=== PATIENT | female | born 1945 | race Two or more races ===

== ENCOUNTER 2020-08-20 17:54 | Inpatient (IN) | payer OTHER ==
[~2020-08-20] VITALS: Ht 154.9 cm; Wt 73.6 kg
[2020-08-20] MEDS ORDERED: MORPHINE SULFATE 4 MG/ML SYR/VIAL IV ONE (18:30)
[2020-08-20] MEDS ORDERED: SODIUM CHLORIDE 0.9% 500 ML IVB ONE (18:30)
[2020-08-20] MEDS ORDERED: ONDANSETRON HCL 4 MG/2 ML VIAL IV ONE (18:30)
[2020-08-20] MEDS ORDERED: levoFLOXacin 500MG 100 ML IV ONE (18:45)
[2020-08-20] MEDS ORDERED: metroNIDAZOLE 500MG/100ML 100 ML IV ONE (18:45)
[2020-08-20 19:07] LABS: Basophils # (auto) 0.1 10 ^3/uL (0-0.2); Eosinophils # (auto) 0.2 10 ^3/uL (0-0.8); Hematocrit 36.7 % (36.0-46.0); Hemoglobin 11.8 g/dL (12.2-16.2); Lymphocytes # (auto) 2.2 10 ^3/uL (0.4-5.4); Mean Corpuscular Hemoglobin 26.5 pg (28.0-32.0); Red Cell Distribution Width 16.9 % (11.8-14.3)
[2020-08-20 19:09] LABS: Eosinophils % (auto) 2.2 % (0.0-7.0); Lymphocytes % (auto) 27.4 % (10.0-50.0); Mean Corpuscular Hgb Conc. 32.1 g/dL (32.0-36.0); Mean Corpuscular Volume 82.6 fL (80.0-100.0); Monocytes # (auto) 0.6 10 ^3/uL (0-1.3); Monocytes % (auto) 8.1 % (0.0-12.0); Neutrophils # (auto) 4.8 10 ^3/uL (1.6-8.6); Neutrophils % (auto) 61.3 % (37.0-80.0); Platelet Count (auto) 340 10^3/uL (140-450); Red Blood Cells 4.45 10^6/uL (4.0-5.20); White Blood Cell 7.9 10^3/uL (4.4-10.8)
[2020-08-20 19:22] LABS: INR 0.99 (0.9-1.15)
[2020-08-20 19:38] LABS: Calcium 8.5 mg/dL (8.5-10.1); Chloride 107 mmol/L (98-107); Potassium 3.6 mmol/L (3.5-5.1); Sodium 140 mmol/L (136-145)
[2020-08-20 19:41] LABS: Alanine Aminotransferase 18 U/L (13-56); Albumin 3.6 g/dL (3.4-5.0); Anion Gap 10 (5-15); Aspartate Aminotransferase 12 U/L (15-37); BUN/Creatinine Ratio 16.2; Blood Urea Nitrogen 12 mg/dL (7-18); Carbon Dioxide 23 mmol/L (21-32); GFR African American 99 mL/min; GFR Non-African American 82 mL/min; Glucose 141 mg/dL (74-106)
[2020-08-20 19:46] LABS: Alkaline Phosphatase 107 U/L (45-117); Bilirubin, Total 0.5 mg/dL (0.2-1.0); Total Protein 7.2 g/dL (6.4-8.2)
[2020-08-20] MEDS ORDERED: MORPHINE SULF INJ 2 MG/ML SYRINGE 1ML IV PRN (20:15)
[2020-08-20] MEDS ORDERED: LABETALOL HCL 5 MG/ML 4ML SYRINGE IV PRN (20:15)
[2020-08-20] MEDS ORDERED: NITROGLYCERIN 0.4 MG SL TAB SL PRN (20:15)
[2020-08-20] MEDS: metroNIDAZOLE 500MG/100ML 100 ML IV SCH (21:37)
[2020-08-20] MEDS: D5W/SOD CHL 0.45%/KCL 20MEQ 1,000 ML IV SCH (22:22)
[2020-08-20 23:08] LABS: Urine Bacteria FEW /hpf (None Seen); Urine Blood Negative /uL (Negative); Urine WBC 63 /hpf (0 - 5)
[2020-08-20 23:12] LABS: Urine Specific Gravity > 1.050 (1.001-1.035)
[2020-08-21] MEDS: D5W/SOD CHL 0.45%/KCL 20MEQ 1,000 ML IV SCH ×3 (04:35→20:08)
[2020-08-21 05:00] VITALS: BP 134/56
[2020-08-21] MEDS: metroNIDAZOLE 500MG/100ML 100 ML IV SCH ×3 (05:01→21:27)
[2020-08-21 09:00] VITALS: BP 112/69
[2020-08-21] MEDS: PANTOPRAZOLE 40 MG/10 ML VIAL INJ IV SCH (09:42)
[2020-08-21] MEDS: levoFLOXacin 500MG 100 ML IV SCH (09:42)
[2020-08-21] MEDS: MORPHINE SULF INJ 2 MG/ML SYRINGE 1ML IV PRN ×2 (09:42→21:49)
[2020-08-21 13:00] VITALS: BP 140/64
[2020-08-21] MEDS ORDERED: ROCURONIUM 10MG/ML 10ML VIAL IV ONE (14:44)
[2020-08-21] MEDS ORDERED: fentaNYL CITRATE 100 MCG/2 ML VL ONE ×2 (14:44→15:59)
[2020-08-21] MEDS ORDERED: MIDAZOLAM HCL 1MG/1ML-2 ML VIAL ONE (14:44)
[2020-08-21] MEDS ORDERED: PROPOFOL 10 MG/ML 20 ML IV ONE (14:47)
[2020-08-21] MEDS ORDERED: LIDOCAINE 2% (LOCAL ANESTH.) PF 5ml SDV ONE (14:47)
[2020-08-21] MEDS ORDERED: LIDOCAINE W/ EPINEPHRINE 1% 20ML VIAL ONE (15:15)
[2020-08-21] MEDS ORDERED: BUPIVACAINE 0.5% MPF INJ 30ML SDV IJ ONE (15:16)
[2020-08-21] MEDS ORDERED: SUCCINYLCHOLINE CHLORIDE 20 MG/ML 10ML VIAL IV ONE (15:16)
[2020-08-21] MEDS ORDERED: ONDANSETRON HCL 4 MG/2 ML VIAL IV PRN (17:00)
[2020-08-21] MEDS ORDERED: HYDROmorphone HCL 2 MG/ML VL IV PRN ×2 (17:00)
[2020-08-21 17:20] VITALS: BP 133/66
[2020-08-21 22:12] VITALS: BP 118/46
[2020-08-22] MEDS: MORPHINE SULF INJ 2 MG/ML SYRINGE 1ML IV PRN (04:03)
[2020-08-22] MEDS: metroNIDAZOLE 500MG/100ML 100 ML IV SCH ×2 (05:01→15:36)
[2020-08-22] MEDS: D5W/SOD CHL 0.45%/KCL 20MEQ 1,000 ML IV SCH ×2 (05:06→12:22)
[2020-08-22 05:40] VITALS: BP 109/67
[2020-08-22 06:02] LABS: Basophils # (auto) 0 10 ^3/uL (0-0.2); Basophils % (auto) 0.3 % (0.0-2.0); Eosinophils # (auto) 0.2 10 ^3/uL (0-0.8); Eosinophils % (auto) 2.3 % (0.0-7.0); Hemoglobin 10.8 g/dL (12.2-16.2); Lymphocytes # (auto) 0.9 10 ^3/uL (0.4-5.4); Lymphocytes % (auto) 12.9 % (10.0-50.0); Mean Corpuscular Hgb Conc. 32.6 g/dL (32.0-36.0); Mean Corpuscular Volume 82.8 fL (80.0-100.0); Monocytes # (auto) 0.5 10 ^3/uL (0-1.3); Neutrophils # (auto) 5.6 10 ^3/uL (1.6-8.6); Neutrophils % (auto) 77.5 % (37.0-80.0); Platelet Count (auto) 280 10^3/uL (140-450); Red Blood Cells 3.98 10^6/uL (4.0-5.20); Red Cell Distribution Width 16.8 % (11.8-14.3); White Blood Cell 7.3 10^3/uL (4.4-10.8)
[2020-08-22 06:23] LABS: Calcium 8.2 mg/dL (8.5-10.1); Potassium 3.6 mmol/L (3.5-5.1)
[2020-08-22 06:26] LABS: BUN/Creatinine Ratio 10.5
[2020-08-22 09:00] VITALS: BP 110/51
[2020-08-22] MEDS: PANTOPRAZOLE 40 MG/10 ML VIAL INJ IV SCH (12:22)
[2020-08-22] MEDS: levoFLOXacin 500MG 100 ML IV SCH (12:22)
[2020-08-22 13:00] VITALS: BP 110/56
[2020-08-22 16:31] VITALS: BP 126/59
[2020-08-22 16:39] VITALS: BP 126/59
[2020-08-22] MEDS ORDERED: NEOSTIGMINE 1 MG/ML INJ (10mg/10ML VIAL) IV ONE (17:59)
[2020-08-22] MEDS ORDERED: GLYCOPYRROLATE 0.2 MG/ML 1ML VIAL IV ONE (17:59)
== END 2020-08-22 18:00 | disposition home or self-care (01) | DRG 343 ==
LOC: ER 17:54 → TELE 20:16 → TELE-WESTW 22:53
PROVIDERS: ADMIT Nurse Practitioner Acute Care; ATTEND Internal Medicine
PROC: 0DTJ4ZZ Resection of Appendix, Percutaneous Endoscopic Approach (ICD-10-PCS; principal; 2020-08-21 15:20)
DX: K35.30 Acute appendicitis with localized peritonitis, without perforation or gangrene (principal); Z20.822 Contact with and (suspected) exposure to COVID-19; R73.03 Prediabetes; Z68.30 Body mass index [BMI] 30.0-30.9, adult; I10 Essential (primary) hypertension; D64.9 Anemia, unspecified; E78.5 Hyperlipidemia, unspecified; E66.01 Morbid (severe) obesity due to excess calories; Z82.0 Family history of epilepsy and other diseases of the nervous system; Z90.710 Acquired absence of both cervix and uterus; Z86.711 Personal history of pulmonary embolism; Z88.0 Allergy status to penicillin; Z91.018 Allergy to other foods; K66.0 Peritoneal adhesions (postprocedural) (postinfection)
CPT/HCPCS: 36415; 71045; 74176; 80048; 80053; 81001; 83605; 84484; 85025; 85610; 85730; 86850; 86900; 86901; 87040; 87081; 87426; 93005; 96361; 96365; 96367; 96375; C9113; G0378; J0330; J1956; J2001; J2250; J2405; J2704; J3490

== ENCOUNTER 2021-01-11 21:22 | Emergency (ER) | payer OTHER ==
[~2021-01-11] VITALS: Ht 162.6 cm; Wt 70.8 kg
[2021-01-11 22:46] LABS: Basophils # (auto) 0 10 ^3/uL (0-0.2); Basophils % (auto) 0.4 % (0.0-2.0); Eosinophils # (auto) 0.3 10 ^3/uL (0-0.8); Eosinophils % (auto) 2.9 % (0.0-7.0); Hematocrit 36.8 % (36.0-46.0); Hemoglobin 11.9 g/dL (12.2-16.2); Lymphocytes # (auto) 3.1 10 ^3/uL (0.4-5.4); Lymphocytes % (auto) 32.5 % (10.0-50.0); Mean Corpuscular Hgb Conc. 32.2 g/dL (32.0-36.0); Mean Corpuscular Volume 83.8 fL (80.0-100.0); Monocytes # (auto) 0.6 10 ^3/uL (0-1.3); Monocytes % (auto) 6.1 % (0.0-12.0); Neutrophils # (auto) 5.6 10 ^3/uL (1.6-8.6); Neutrophils % (auto) 58.1 % (37.0-80.0); Red Blood Cells 4.39 10^6/uL (4.0-5.20); Red Cell Distribution Width 16.2 % (11.8-14.3); White Blood Cell 9.6 10^3/uL (4.4-10.8)
[2021-01-11 23:07] LABS: Albumin 3.5 g/dL (3.4-5.0); Anion Gap 9 (5-15); Blood Urea Nitrogen 17 mg/dL (7-18); Carbon Dioxide 26 mmol/L (21-32); Chloride 109 mmol/L (98-107); Glucose 113 mg/dL (74-106); Potassium 3.8 mmol/L (3.5-5.1); Sodium 144 mmol/L (136-145)
[2021-01-11 23:14] LABS: Alanine Aminotransferase 20 U/L (13-56); Alkaline Phosphatase 108 U/L (45-117); Amylase 102 U/L (25-115); Aspartate Aminotransferase 15 U/L (15-37); Bilirubin, Total 0.2 mg/dL (0.2-1.0); GFR African American 61 mL/min; GFR Non-African American 50 mL/min; Lipase 230 U/L (73-393); Total Protein 7.3 g/dL (6.4-8.2)
[2021-01-12] MEDS ORDERED: SODIUM CHLORIDE 0.9% 2,000 ML IV ONE
[2021-01-12] MEDS ORDERED: ONDANSETRON HCL 4 MG/2 ML VIAL IV ONE
[2021-01-12] MEDS ORDERED: levoFLOXacin 500MG 100 ML IV ONE
[2021-01-12] MEDS ORDERED: HYDROmorphone HCL 2 MG/ML VL IV ONE
[2021-01-12] MEDS ORDERED: metroNIDAZOLE 500MG/100ML 100 ML IV ONE
[2021-01-12 03:56] LABS: Urine Blood Negative /uL (Negative); Urine Specific Gravity 1.023 (1.001-1.035); Urine WBC 191 /hpf (0 - 5)
[2021-01-12 03:57] LABS: Urine Bacteria MANY /hpf (None Seen); Urine Mucus FEW (None Seen)
[2021-01-12] MEDS ORDERED: cefTRIAXone 1GM/50ML D5W 50 ML IV ONE (08:45)
[2021-01-12 15:00] VITALS: BP 142/56
== END 2021-01-12 19:15 | disposition home or self-care (01) ==
LOC: ER 21:27
DX: K57.30 Diverticulosis of large intestine without perforation or abscess without bleeding (principal); K44.9 Diaphragmatic hernia without obstruction or gangrene; K56.7 Ileus, unspecified; I10 Essential (primary) hypertension; Z90.49 Acquired absence of other specified parts of digestive tract; Z90.710 Acquired absence of both cervix and uterus; Z88.0 Allergy status to penicillin; Z91.018 Allergy to other foods; Z20.822 Contact with and (suspected) exposure to COVID-19
CPT/HCPCS: 36415; 71045; 74018; 74176; 80053; 81001; 82150; 83690; 84484; 85025; 87426; 96365; 96367; 96375; 99285; J0696; J1170; J1956; J2405; J3490; J7030; 93005

== ENCOUNTER 2023-10-19 13:44 | Emergency (ER) | payer MEDICARE, MEDICAID ==
[~2023-10-19] VITALS: Ht 152.4 cm; Wt 72.3 kg
[2023-10-19 16:09] LABS: Basophils # (auto) 0.1 10 ^3/uL (0-0.2); Eosinophils # (auto) 0.2 10 ^3/uL (0-0.8); Eosinophils % (auto) 3.8 % (0.0-7.0); Hematocrit 30.9 % (36.0-46.0); Hemoglobin 9.6 g/dL (12.2-16.2); Lymphocytes % (auto) 34.9 % (10.0-50.0); Mean Corpuscular Hemoglobin 25.5 pg (28.0-32.0); Mean Corpuscular Hgb Conc. 31.1 g/dL (32.0-36.0); Mean Corpuscular Volume 82.2 fL (80.0-100.0); Monocytes # (auto) 0.6 10 ^3/uL (0-1.3); Neutrophils # (auto) 2.9 10 ^3/uL (1.6-8.6); Neutrophils % (auto) 50.3 % (37.0-80.0); Red Blood Cells 3.76 10^6/uL (4.0-5.20); White Blood Cell 5.7 10^3/uL (4.4-10.8)
[2023-10-19 16:36] LABS: Alanine Aminotransferase 12 U/L (7-40); Albumin 4.3 g/dL (3.2-4.8); Alkaline Phosphatase 89 U/L (46-116); Anion Gap 6 (5-15); Aspartate Aminotransferase 10 U/L (13-40); BUN/Creatinine Ratio 13.9 (10.0-20.0); Blood Urea Nitrogen 11 mg/dL (9-23); Calcium 9.6 mg/dL (8.5-10.1); Carbon Dioxide 27 mmol/L (20-30); Chloride 110 mmol/L (98-107); Glucose 103 mg/dL (74-106); Potassium 3.8 mmol/L (3.5-5.1); Sodium 143 mmol/L (136-145)
[2023-10-19 16:37] LABS: Bilirubin, Total 0.3 mg/dL (0.2-1.0); Total Protein 6.5 g/dL (5.7-8.2)
[2023-10-19] MEDS ORDERED: FURO1TAB31 PO (20:33)
[2023-10-19] MEDS ORDERED: BACL20TA PO (20:33)
[2023-10-19 20:52] VITALS: BP 146/56; PULSE 55; RESP 18; TEMP 98.2; O2SAT 96
== END 2023-10-19 20:55 | disposition home or self-care (01) ==
LOC: ER 13:44
DX: I11.0 Hypertensive heart disease with heart failure (principal); I50.9 Heart failure, unspecified; R60.0 Localized edema; M19.90 Unspecified osteoarthritis, unspecified site; E11.9 Type 2 diabetes mellitus without complications; Z86.2 Personal history of diseases of the blood and blood-forming organs and certain disorders involving the immune mechanism; Z88.0 Allergy status to penicillin; Z90.49 Acquired absence of other specified parts of digestive tract; Z90.710 Acquired absence of both cervix and uterus; Z91.018 Allergy to other foods
CPT/HCPCS: 36415; 71045; 80053; 83880; 85025; 85379

== ENCOUNTER 2024-10-14 11:16 | Inpatient (IN) | payer MEDICARE, MEDICAID ==
[~2024-10-14] VITALS: Ht 152.4 cm; Wt 70.1 kg
[~2024-10-14 11:16] MED LIST: BACL20TA PO; FURO1TAB31 PO
--- NOTE | 2024-10-14 11:55 | ED.PDOC ---
GI ASSESSMENT HPI Comments 79 y/o F, with PMHx of urinary incontinence, anemia, abdominal ulcers, PE, DM, and HTN presents to the ED for CC of diarrhea. Patient states, she has been experiencing lose black tarry stools with associated symptoms of nausea, vomiting, and diffuse abdominal pain x3days. Patient reports, she was recently treated for a UTI and has since, finished her course of antibiotics. Patient denies change in diet, hematemesis, fever, chills, or body aches. No other symptoms or modifying factors present at this time. Chief Complaint: Diarrhea Time Seen by MD: 11:35 Primary Care Provider: RAMÓN Reviewed Notes: Nurses Notes, Medications, Allergies Allergies: Coded Allergies: Penicillins (Verified Allergy, Unknown, 01/11/21) Uncoded Allergies: kiwi (Allergy, Mild, 08/21/20) Home Meds Active Scripts Baclofen (Baclofen) 20 Mg Tab, 1 TAB PO TID PRN, #30 TAB 2 Refills Prov:PEDRO LUIS SANFORD 10/19/23 Furosemide (Lasix) 40 Mg Tab, 40 MG PO DAILY for 20 Days, #20 TAB Prov:PEDRO LUIS SANFORD 10/19/23 Reported Medications Ferrous Sulfate (Ferosul) 325 Mg Tab, 1 TAB PO DAILY 10/14/24 Atorvastatin Calcium (ATORVASTATIN CALCIUM) 40 Mg Tab, 1 TAB PO DAILY 10/14/24 Gabapentin (Gabapentin) 300 Mg Cap, 1 CAP PO TID 10/14/24 Losartan Potassium (Losartan Potassium) 50 Mg Tab, 1 TAB PO DAILY 10/14/24 Sucralfate (Sucralfate) 1 Gm Tab, 1 TAB PO BID 10/14/24 Pantoprazole Sodium Sesquihydr (Pantoprazole Sodium) 40 Mg Tab, 1 TAB PO DAILY 10/14/24 Information Source: Patient Mode of Arrival: Ambulatory Timing: Days Duration: Since onset Prehospital treatment: None Quality: None Stool: Watery, Black Severity: Moderate Recent: None Recent Hx of: None Pain Location: Diffuse Modifying Factors: Nothing Associated sign and symptoms: Nausea, Vomiting, Diarrhea, Abdominal Pain Past Medical History PAST MEDICAL HISTORY: Anemia, Arthritis, DM, HTN Surgical History: Appendectomy, Hysterectomy ELECTROTYPE CASTER History: No Pertinent ELECTROTYPE CASTER History Family History Family History: Reviewed,noncontributory to illness Social History Smoker: Non-Smoker Alcohol: Denies ETOH Use Drugs: Denies Drug Use Lives In: Home Gastrointestinal: reports: abdominal pain, melena, nausea, vomiting All Other Systems: Reviewed and Negative Physical Exam General Appearance: No Apparent Distress, Normal HEENT: Normal ENT Inspection, Pharynx Normal Neck: Full Range of Motion, Non-Tender, Normal, Normal Inspection Respiratory: Chest Non-Tender, Lungs Clear, No Accessory Muscle Use, No Respiratory Distress, Normal Breath Sounds Cardiovascular: No Edema, No Murmur, No Gallop, Normal Peripheral Pulses, Regular Rate/Rhythm Breast Exam: Deferred Gastrointestinal: No Organomegaly, Non Tender, No Pulsatile Mass, Normal Bowel Sounds, Soft Genitalia: Deferred Pelvic: Deferred Rectal: Black stool Extremities: No calf tenderness, Normal capillary refill, Normal inspection, Normal range of motion, Non-tender, No pedal edema Musculoskeletal : Apperance: Normal Neurologic: Alert, franchise sales representative II-XII nml as Tested, No Motor Deficits, Normal Affect, Normal Mood, No Sensory Deficits Cerebellar Function: Normal Reflexes: Normal Skin: Dry, Normal Color, Warm Lymphatic: No Adenopathy Was a procedure done? Was a procedure done?: No GI differential Dx Differential Diagnosis: GI hemorrhage X-Ray, Labs, Meds, VS Vital Signs Date Time Temp Pulse Resp B/P (MAP) Pulse Ox O2 Delivery O2 Flow Rate FiO2 10/14/24 12:30 98.4 89 17 126/53 (77) 98 98.4 10/14/24 12:30 89 17 98 Room Air 10/14/24 11:32 97.0 72 16 125/49 (74) 96 97.0 Lab Test 10/14/24 11:45 Range/Units White Blood Count 5.5 4.4-10.8 10^3/uL Red Blood Count 3.13 L 4.0-5.20 10^6/uL Hemoglobin 7.5 L 12.2-16.2 g/dL Hematocrit 24.4 L 36.0-46.0 % Mean Corpuscular Volume 77.9 L 80.0-100.0 fL Mean Corpuscular Hemoglobin 24.1 L 28.0-32.0 pg Mean Corpuscular Hemoglobin Concent 30.9 L 32.0-36.0 g/dL Red Cell Distribution Width 17.6 H 11.8-14.3 % Platelet Count 298 140-450 10^3/uL Mean Platelet Volume 7.5 6.9-10.8 fL Neutrophils (%) (Auto) 55.2 37.0-80.0 % Lymphocytes (%) (Auto) 29.2 10.0-50.0 % Monocytes (%) (Auto) 8.1 0.0-12.0 % Eosinophils (%) (Auto) 6.6 0.0-7.0 % Basophils (%) (Auto) 0.9 0.0-2.0 % Neutrophils # (Auto) 3.0 1.6-8.6 10 ^3/uL Lymphocytes # (Auto) 1.6 0.4-5.4 10 ^3/uL Monocytes # (Auto) 0.4 0-1.3 10 ^3/uL Eosinophils # (Auto) 0.4 0-0.8 10 ^3/uL Basophils # (Auto) 0 0-0.2 10 ^3/uL Nucleated Red Blood Cells 0.1 % Sodium Level 142 136-145 mmol/L Potassium Level 3.4 L 3.5-5.1 mmol/L Chloride Level 112 H 98-107 mmol/L Carbon Dioxide Level 23 20-31 mmol/L Anion Gap 7 5-15 Blood Urea Nitrogen 11 9-23 mg/dL Creatinine 0.88 0.550-1.02 mg/dL Glomerular Filtration Rate Calc 67 >90 mL/min BUN/Creatinine Ratio 12.5 10.0-20.0 Serum Glucose 91 74-106 mg/dL Hemoglobin A1c 5.9 H <5.7 % A1C Calcium Level 8.9 8.7-10.4 mg/dL Total Bilirubin 0.4 0.2-1.0 mg/dL Aspartate Amino Transferase (AST) 10 L 13-40 U/L Alanine Aminotransferase (ALT) 11 7-40 U/L Alkaline Phosphatase 96 46-116 U/L Total Protein 6.1 5.7-8.2 g/dL Albumin 4.1 3.2-4.8 g/dL Current Medications Medications (Trade) Dose Ordered Sig/Ulysses Route Start Time Stop Time Status Last Admin Furosemide (Lasix Injection) 20 mg ONCE ONCE IV 10/14/24 11:30 10/14/24 11:31 DC 10/14/24 14:09 71-year-old male presents here with black tarry stools for the last couple of days. She does have a history of known gastric ulcer as medication list include sucralfate. Suspect likely GI bleed. At this time blood work has been done which does demonstrate anemia of 7.5. Patient also has evidence of some mild leg edema. I have given the Lasix 20 IV in the ER. Potassium also slightly low at 3.4 given 1 pill of KCl. At this time hospitalist team has been contacted for admission. Time of 1ST Reevaluation: 12:05 Reevaluation 1ST: Unchanged Patient Education/Counseling: Diagnosis, Treatment Family Education/Counseling: No Family Present Departure 1 Departure Time of Disposition: 12:45 Impression: Primary Impression: Anemia Qualified Codes: D50.9 - Iron deficiency anemia, unspecified Additional Impression: Gastric bleed Disposition: ADMITTED INPATIENT Condition: Serious Critical Care Note Critical Care Time?: Yes Stability Stability form required: No Heart Score Heart Score: Heart Score Response (Comments) Value History N/A 0 EKG N/A 0 Age N/A 0 Risk Factors N/A 0 Troponin N/A 0 Total 0 I personally scribed for SAMANTHA FRIEDMAN MD ([email or web address]) on 10/14/24 at 11:55. Electronically submitted by Jil Ochoa ([email or web address]). SAMANTHA FRIEDMAN MD Oct 14, 2024 11:55
[2024-10-14 12:03] LABS: Basophils # (auto) 0 10 ^3/uL (0-0.2); Basophils % (auto) 0.9 % (0.0-2.0); Eosinophils # (auto) 0.4 10 ^3/uL (0-0.8); Eosinophils % (auto) 6.6 % (0.0-7.0); Hematocrit 24.4 % (36.0-46.0); Hemoglobin 7.5 g/dL (12.2-16.2); Lymphocytes # (auto) 1.6 10 ^3/uL (0.4-5.4); Lymphocytes % (auto) 29.2 % (10.0-50.0); Mean Corpuscular Hemoglobin 24.1 pg (28.0-32.0); Mean Corpuscular Hgb Conc. 30.9 g/dL (32.0-36.0); Mean Corpuscular Volume 77.9 fL (80.0-100.0); Monocytes # (auto) 0.4 10 ^3/uL (0-1.3); Monocytes % (auto) 8.1 % (0.0-12.0); Neutrophils % (auto) 55.2 % (37.0-80.0); Nucleated Red Blood Cells % 0.1 %; Platelet Count (auto) 298 10^3/uL (140-450); Red Blood Cells 3.13 10^6/uL (4.0-5.20); Red Cell Distribution Width 17.6 % (11.8-14.3); White Blood Cell 5.5 10^3/uL (4.4-10.8)
[2024-10-14 12:17] LABS: Alanine Aminotransferase 11 U/L (7-40); Albumin 4.1 g/dL (3.2-4.8); Alkaline Phosphatase 96 U/L (46-116); Anion Gap 7 (5-15); Aspartate Aminotransferase 10 U/L (13-40); BUN/Creatinine Ratio 12.5 (10.0-20.0); Bilirubin, Total 0.4 mg/dL (0.2-1.0); Blood Urea Nitrogen 11 mg/dL (9-23); Calcium 8.9 mg/dL (8.7-10.4); Carbon Dioxide 23 mmol/L (20-31); Chloride 112 mmol/L (98-107); Glucose 91 mg/dL (74-106); Potassium 3.4 mmol/L (3.5-5.1); Sodium 142 mmol/L (136-145); Total Protein 6.1 g/dL (5.7-8.2)
[2024-10-14] MEDS ORDERED: NITROGLYCERIN 0.4 MG SL TAB SL PRN (13:15)
[2024-10-14] MEDS ORDERED: ONDANSETRON HCL 4 MG/2 ML VIAL IV PRN (13:15)
[2024-10-14] MEDS ORDERED: DEXTROSE (50%) 50ML SYRG IV PRN (13:15)
[2024-10-14] MEDS: FUROSEMIDE 20 MG/2 ML VIAL IV ONE (14:09)
[2024-10-14] MEDS ORDERED: ATOR40TA52 PO (14:13)
[2024-10-14] MEDS ORDERED: SUCR1TAB PO (14:13)
[2024-10-14] MEDS ORDERED: GABA-1250 PO (14:13)
[2024-10-14] MEDS ORDERED: FERR325T20 PO (14:13)
[2024-10-14] MEDS ORDERED: PANT40T PO (14:13)
[2024-10-14] MEDS ORDERED: LOSA-534 PO (14:13)
[2024-10-14] MEDS: POTASSIUM CHL 20 Meq TABLET PO ONE (14:24)
--- NOTE | 2024-10-14 14:29 | DVHHP2 ---
History of Present Illness Reason for Visit: Diarrhea History of Present Illness Shelia Duggan is a 71-year-old female with past medical history of hypertension, diabetes, PE, urinary incontinence, anemia, arthritis, ulcers, appendectomy, and hysterectomy who presents to the ED with diarrhea x3 days. Patient states that the stool has been loose tarry and dark. Patient also stated that in April she fell and hit the right side of her head in the [place]. She states that she did not lose consciousness. She does report that she uses a front wheel walker but when she goes out she holds onto her granddaughter's arm. She denies any chest pain, shortness of breath, fever, chills, lightheadedness, weakness, dizziness, recent trauma or injury, recent ingestion of spoiled food, recent sick contacts, abdominal pain, nausea, or vomiting. Patient reports that she had a UTI recently in finished the course of antibiotics. Patient also states that she takes Eliquis for her PE for the last 5 months. Cardiovascular: HTN Pulmonary: Pulmonary embolus Heme/Onc: Anemia NOS Endocrine: Diabetes Past Medical History Urinary incontinence Ulcers Arthritis Past Surgical History: Appendectomy, Hysterectomy Family History: DM, Other (Mom with diabetes and dad with heart disease) Smoke: No ALCOHOL: none Drugs: None Lives: with Family Domestic Violence: Neg Review of Systems Gastrointestinal: Diarrhea Allergies: Coded Allergies: Penicillins (Verified Allergy, Unknown, 01/11/21) Uncoded Allergies: kiwi (Allergy, Mild, 08/21/20) Medications Current Medications Medications Dose Ordered Sig/Ulysses Route Start Time Stop Time Status Last Admin Dose Admin Diagnostic Test (Pha) 1 strip ACHS 10/14/24 17:00 UNV Insulin Human Regular ACHS SC 10/14/24 17:00 UNV Dextrose 50 ml UD PRN IV 10/14/24 13:15 UNV Acetaminophen/ Hydrocodone Bitart 1 tab Q4HP PRN PO 10/14/24 13:15 UNV Ondansetron HCl 4 mg Q4HP PRN IV 10/14/24 13:15 UNV Acetaminophen 650 mg Q6HP PRN PO 10/14/24 13:15 UNV Morphine Sulfate 2 mg Q4HPRN PRN IV 10/14/24 13:15 UNV Nitroglycerin 0.4 mg Q5MINP PRN SL 10/14/24 13:15 UNV Morphine Sulfate 2 mg Q30M PRN IV 10/14/24 13:15 UNV Gabapentin 300 mg TID PO 10/14/24 22:00 UNV Losartan Potassium 50 mg DAILY PO 10/15/24 10:00 UNV Sucralfate 1 gm BID PO 10/14/24 22:00 UNV Patient Own Medication 1 tab DAILY PO 10/15/24 10:00 UNV Patient Own Medication 1 tab DAILY PO 10/15/24 10:00 UNV Exam Vital Signs Vital Signs Date Time Temp Pulse Resp B/P (MAP) Pulse Ox O2 Delivery O2 Flow Rate FiO2 10/14/24 14:09 119/85 10/14/24 13:59 98.4 64 17 96 98.4 10/14/24 12:30 Room Air General Appearance: Alert, Oriented X3, Cooperative, No acute distress HEENT: Atraumatic, PERRLA, EOMI, Mucous membr. moist/pink Respiratory: Clear to auscultation, Normal air movement Cardiovascular: Regular rate, Normal S1, Normal S2 Abdominal: Soft Extremities: No edema, Normal pulses Skin: No significant lesion Neuro: Normal gait, Normal speech, Strength at 5/5 X4 ext, Normal tone, Sensation intact Psych/Mental Status: Mental status NL, Mood NL Labs/Xrays Labs Test 10/14/24 11:45 Range/Units White Blood Count 5.5 4.4-10.8 10^3/uL Red Blood Count 3.13 L 4.0-5.20 10^6/uL Hemoglobin 7.5 L 12.2-16.2 g/dL Hematocrit 24.4 L 36.0-46.0 % Mean Corpuscular Volume 77.9 L 80.0-100.0 fL Mean Corpuscular Hemoglobin 24.1 L 28.0-32.0 pg Mean Corpuscular Hemoglobin Concent 30.9 L 32.0-36.0 g/dL Red Cell Distribution Width 17.6 H 11.8-14.3 % Platelet Count 298 140-450 10^3/uL Mean Platelet Volume 7.5 6.9-10.8 fL Neutrophils (%) (Auto) 55.2 37.0-80.0 % Lymphocytes (%) (Auto) 29.2 10.0-50.0 % Monocytes (%) (Auto) 8.1 0.0-12.0 % Eosinophils (%) (Auto) 6.6 0.0-7.0 % Basophils (%) (Auto) 0.9 0.0-2.0 % Neutrophils # (Auto) 3.0 1.6-8.6 10 ^3/uL Lymphocytes # (Auto) 1.6 0.4-5.4 10 ^3/uL Monocytes # (Auto) 0.4 0-1.3 10 ^3/uL Eosinophils # (Auto) 0.4 0-0.8 10 ^3/uL Basophils # (Auto) 0 0-0.2 10 ^3/uL Nucleated Red Blood Cells 0.1 % Sodium Level 142 136-145 mmol/L Potassium Level 3.4 L 3.5-5.1 mmol/L Chloride Level 112 H 98-107 mmol/L Carbon Dioxide Level 23 20-31 mmol/L Anion Gap 7 5-15 Blood Urea Nitrogen 11 9-23 mg/dL Creatinine 0.88 0.550-1.02 mg/dL Glomerular Filtration Rate Calc 67 >90 mL/min BUN/Creatinine Ratio 12.5 10.0-20.0 Serum Glucose 91 74-106 mg/dL Calcium Level 8.9 8.7-10.4 mg/dL Total Bilirubin 0.4 0.2-1.0 mg/dL Aspartate Amino Transferase (AST) 10 L 13-40 U/L Alanine Aminotransferase (ALT) 11 7-40 U/L Alkaline Phosphatase 96 46-116 U/L Total Protein 6.1 5.7-8.2 g/dL Albumin 4.1 3.2-4.8 g/dL Assessment/Plan Assessment/Plan Assessment Intractable diarrhea with dark loose stools rule out GI bleed Anemia Hypokalemia Obesity History of hypertension History of diabetes type 2 History of PE History of urinary incontinence History of anemia History of arthritis History of ulcers Plan Admit to tele Antiemetics Pain management Replete lytes Type and screen Transfuse PRBCs if hemoglobin less than 7.0 Stool OB UA Hemoglobin A1c ISS and Accu-Cheks CT abdomen pelvis Diet Home medications reconciled DVT prophylaxis-not indicated patient ambulating PUD prophylaxis-PPIs Discussed plan of care with patient and nurse GI consult Hold Eliquis as patient has been bleeding, rule out possible GI bleed Counseled patient on lifestyle modifications, diet, and exercise Plan discussed with: Patient My Orders Orders - THON,SALINA K TRAIN PLANNER Procedure Category Date Status Time * Gi Dvh Forming Roll Operator Heavy Duty CONS 10/14/24 Transmitted 13:02 Hemoglobin A1c LAB 10/14/24 Logged 13:02 Glucose Blood PHA 10/14/24 Logged (Accu-Chek Comfort 17:00 Insulin R (Human) PHA 10/14/24 Logged (Insulin R) 17:00 Dextrose 50% Syringe PHA 10/14/24 Logged 13:15 Admit ADMIT 10/14/24 Transmitted 13:02 Code Status CODE 10/14/24 Transmitted 13:02 Hydrocodone-Acet PHA 10/14/24 Logged 5/325mg Tab ([place] 13:15 Ondansetron Hcl PHA 10/14/24 Logged (Zofran) 13:15 Complete Blood Count LAB 10/15/24 Verified 04:00 Comprehensive LAB 10/15/24 Verified Metabolic Panel 04:00 Cardiac DIET 10/14/24 Transmitted Diet-2gna,Lofat,Lochol Lunch Acetaminophen Tablet PHA 10/14/24 Logged (Tylenol Tablet) 13:15 Morphine Sulfate PHA 10/14/24 Logged Injection 13:15 Sequential AVTAR 10/14/24 In Process Compression Device Nitroglycerin PHA 10/14/24 Logged Sublingual (Ntrostat 13:15 Morphine Sulfate PHA 10/14/24 Logged Injection 13:15 Stat Ekg For Chest AVTAR 10/14/24 In Process Pain 13:02 Notify Of Changes AVTAR 10/14/24 In Process From Base 13:02 Academic Services Coordinator For AVTAR 10/14/24 In Process 24 Hours 13:02 Emergency Dysrhythmia AVTAR 10/14/24 In Process Protocol 13:02 Rhythm Strips Once AVTAR 10/14/24 In Process Every Shift 13:02 Oxygen By Nasal RT 10/14/24 Transmitted Cannula 13:02 Ct Ab Pel Wo Con-No CT 10/14/24 Logged Oral Or Iv 13:02 Gabapentin Capsule PHA 10/14/24 Transmitted (Neurontin Capsule) 22:00 Losartan Tablet PHA 10/15/24 Transmitted (Cozaar Tablet) 10:00 Sucralfate Tab PHA 10/14/24 Transmitted (Carafate Tab) 22:00 (Nf) Atorvastatin PHA 10/15/24 Transmitted Calcium 10:00 (Nf) Ferrous Sulfate PHA 10/15/24 Transmitted (Ferosul) 10:00 Date of Service: Oct 14, 2024 Billing Provider: [place] Common Visit Codes: [id number] INP/OBS CARE (HIGH) BLANCA BAY Oct 14, 2024 14:29
[2024-10-14] MEDS ORDERED: MORPHINE SULFATE 4 MG/ML SYR/VIAL IV PRN ×2 (14:30)
[2024-10-14 14:53] VITALS: BP 115/47; PULSE 59; RESP 18; TEMP 97.8; O2SAT 98
[2024-10-14 14:57] VITALS: PULSE 56; RESP 20; O2SAT 98
--- NOTE | 2024-10-14 15:03 | DVH ---
CT CT AB PEL WO CON-NO ORAL OR IV INDICATION: r/o gib EXAM DATE: 10/14/2024 02:29 PM COMPARISON: CT ABD PELVIS WO CONTRAST on DOS: 01/11/21, CT ABD PELVIS WO CONTRAST on DOS: 08/20/20 RADIATION DOSE: CTDIvol: 11 mGy, DLP: 564 mGy*cm PROCEDURE: Helical CT images were obtained of the abdomen and pelvis without IV contrast Sagittal and coronal reconstructions are provided. ORAL CONTRAST: None. ADDITIONAL IMAGES / REFORMATS: None All C T scans at this medical facility are performed using dose modulation techniques as appropriate to a p erformed exam including the following: Automated exposure control was utilized; adjustment of the MA and/or KV according to patient size; and use of iterative reconstruction technique. FINDINGS: LUNG BASE: Bibasilar atelectasis. LIVER: Normal. GALLBLADDER AND BILIARY TREE: No calcified gallstones. Normal caliber wall. No intra- or extrahepatic biliary ductal dilation. PANCREAS: Normal. SPLEEN: Normal. BOWEL: Stomach containing hiatal hernia. Moderate colonic diverticulosis. ADRENALS: Normal. KIDNEYS AND URETER: Normal. BLADDER: Normal. REPRODUCTIVE ORGANS: Normal. LYMPH NODES:No lymphadenopathy. PERITONEUM: No ascites or free air. No other fluid collection. VESSELS: Scattered atherosclerotic calcifications are noted. RETROPERITONEUM: Normal. ABDOMINAL WALL: Small umbilical hernia. BONES: Scattered osseous degenerative changes are noted. IMPRESSION: No acute intraabdominal abnormality. Stomach containing hiatal hernia contains dense material likely food debris. Moderate colonic diverticulosis.
[2024-10-14] MEDS: GABAPENTIN 300 MG CAP PO SCH (15:54)
[2024-10-14 16:21] LABS: Urine Bacteria FEW /hpf (None Seen); Urine Blood Negative /uL (Negative); Urine Clarity Clear (Clear); Urine Color Colorless (Yellow); Urine Protein, UAD Negative (Negative); Urine Specific Gravity 1.005 (1.001-1.035); Urine Squamous Epithelial Cell FEW /hpf (<5); Urine Urobilinogen Normal (Negative); Urine WBC 2 /HPF (0-5)
[2024-10-14] MEDS: InsuLIN REG 1unit/0.01ml Soln (100units/ml) SC SCH (17:00)
[2024-10-14] MEDS: ACCU-CHEK COMFORT CURVE STRIP VI SCH (17:26)
[2024-10-14 18:00] VITALS: BP 126/44; PULSE 53; RESP 18; TEMP 97.7; O2SAT 95
[2024-10-14 20:14] VITALS: BP 135/43; PULSE 69; RESP 16; TEMP 98.3; O2SAT 98
[2024-10-14] MEDS: PANTOPRAZOLE 40 MG/10 ML VIAL INJ IV SCH (21:08)
[2024-10-14] MEDS: SUCRALFATE 1 GM TAB PO SCH (21:08)
[2024-10-14] MEDS: ATORVASTATIN 20 MG TAB PO SCH (21:08)
[2024-10-14] MEDS: HYDROcodone-ACET 5/325MG TAB PO PRN (22:11)
[2024-10-14 23:53] VITALS: PULSE 63; RESP 15; O2SAT 97
[2024-10-15] VITALS (8 sets, daily range): BP systolic 120–130; BP diastolic 40–64; PULSE 56–91; RESP 15–18; TEMP 97.9–100; O2SAT 90–97
[2024-10-15 05:51] LABS: Eosinophils # (auto) 0.4 10 ^3/uL (0-0.8); Lymphocytes # (auto) 1.7 10 ^3/uL (0.4-5.4); Monocytes # (auto) 0.5 10 ^3/uL (0-1.3); White Blood Cell 5.1 10^3/uL (4.4-10.8)
[2024-10-15 05:54] LABS: Basophils # (auto) 0 10 ^3/uL (0-0.2); Basophils % (auto) 0.8 % (0.0-2.0); Eosinophils % (auto) 7.7 % (0.0-7.0); Hematocrit 24.1 % (36.0-46.0); Hemoglobin 7.3 g/dL (12.2-16.2); Lymphocytes % (auto) 32.7 % (10.0-50.0); Mean Corpuscular Hemoglobin 23.6 pg (28.0-32.0); Mean Corpuscular Hgb Conc. 30.4 g/dL (32.0-36.0); Mean Corpuscular Volume 77.6 fL (80.0-100.0); Monocytes % (auto) 9.4 % (0.0-12.0); Neutrophils # (auto) 2.5 10 ^3/uL (1.6-8.6); Neutrophils % (auto) 49.4 % (37.0-80.0); Platelet Count (auto) 284 10^3/uL (140-450); Red Cell Distribution Width 17.1 % (11.8-14.3)
[2024-10-15 06:09] LABS: Alanine Aminotransferase 10 U/L (7-40); Albumin 3.9 g/dL (3.2-4.8); Alkaline Phosphatase 73 U/L (46-116); Anion Gap 8 (5-15); BUN/Creatinine Ratio 14.1 (10.0-20.0); Bilirubin, Total 0.5 mg/dL (0.2-1.0); Blood Urea Nitrogen 12 mg/dL (9-23); Calcium 8.9 mg/dL (8.7-10.4); Carbon Dioxide 25 mmol/L (20-31); Glucose 88 mg/dL (74-106); Potassium 3.8 mmol/L (3.5-5.1)
[2024-10-15 06:14] LABS: Aspartate Aminotransferase 9 U/L (13-40); Chloride 113 mmol/L (98-107); Sodium 146 mmol/L (136-145); Total Protein 5.7 g/dL (5.7-8.2)
--- NOTE | 2024-10-15 09:18 | DVHPN2 ---
Progress Note Date Seen: Oct 15, 2024 Medical Necessity Reason Pt with a Central, PICC or Fol: No Subjective Review of Systems: CVS:Normal, RESPIRATORY:Normal, :Normal Objective vital signs Vital Sign Date Time Temp Pulse Resp B/P (MAP) Pulse Ox O2 Delivery O2 Flow Rate FiO2 10/15/24 09:00 98.4 71 18 130/59 (82) 93 98.4 10/14/24 23:53 Room Air* 0 21 Total Intake and Output 10/14/24 10/14/24 10/15/24 15:00 23:00 07:00 Intake Total 500 ml 100 ml Balance 500 ml 100 ml medications Current Medications Medications Dose Ordered Sig/Ulysses Route Start Time Stop Time Status Last Admin Dose Admin Diagnostic Test (Pha) 1 strip ACHS 10/14/24 17:00 10/15/24 06:14 1 STRIP Insulin Human Regular ACHS SC 10/14/24 17:00 10/14/24 21:08 2 UNITS Dextrose 50 ml UD PRN IV 10/14/24 13:15 Acetaminophen/ Hydrocodone Bitart 1 tab Q4HP PRN PO 10/14/24 13:15 10/14/24 22:11 1 TAB Ondansetron HCl 4 mg Q4HP PRN IV 10/14/24 13:15 Acetaminophen 650 mg Q6HP PRN PO 10/14/24 13:15 Morphine Sulfate 2 mg Q4HPRN PRN IV 10/14/24 14:30 Nitroglycerin 0.4 mg Q5MINP PRN SL 10/14/24 13:15 Morphine Sulfate 2 mg Q30M PRN IV 10/14/24 14:30 Gabapentin 300 mg TID PO 10/14/24 14:32 10/15/24 06:13 300 MG Losartan Potassium 50 mg DAILY PO 10/15/24 10:00 Sucralfate 1 gm BID PO 10/14/24 22:00 10/14/24 21:08 1 GM Atorvastatin Calcium 40 mg HS PO 10/14/24 22:00 10/14/24 21:08 40 MG Ferrous Sulfate 325 mg DAILY PO 10/15/24 10:00 Pantoprazole Sodium 40 mg BID IV 10/14/24 22:00 10/14/24 21:08 40 MG Examination: GENERAL:Normal, LUNGS:Normal, CVS:Normal, ABDOMEN:Normal, SKIN:Normal, NEURO:Normal laboratory and microbiology Laboratory Tests 10/15/24 05:29 Test 10/15/24 05:29 Range/Units Serum Glucose 88 74-106 mg/dL Labs and/or images reviewed: Image(s) reviewed by me Problem List/Assessment/Plan Problem List/Assessment/Plan 1. Intractable diarrhea with dark loose stools GI consult, PPI, transfuse for hbg below 7 2. acute on chronic anemia IV iron 3. hx of PE take eliquis at home monitor 4. HLD monitor 5. GI bleed? hold anticoagulation, PPI, GI consult Subjective patient is awake and alert Objective: Patient was admitted for intractable diarrhea, patient reports coming off antibiotics for recent UTI. Patient could likely have side effects from recent antibiotics. Patient is subsequently reporting black tarry stools, she does take Eliquis for previous PE in the past. Patient does report having thrombectomy. In addition patient does have iron-deficiency anemia, hemoglobin is 7.3 today. Patient reports diarrhea did stopped last night. We will hold anticoagulation for now until patient is seen by GI. Plan: Hold anticoagulation, GI consult, ppi, transfuse for hemoglobin below seven Plan discussed with: Patient Date of Service: Oct 15, 2024 Billing Provider: HARSHAD OLIVER MD Common Visit Codes: [id number] INP/OBS CARE (MOD) OMI COTO MARINE TOWER OPERATOR Oct 15, 2024 09:18
[2024-10-15 10:07] LABS: % Iron Saturation 3.4 % (15-50)
[2024-10-15] MEDS: PANTOPRAZOLE 40 MG/10 ML VIAL INJ IV SCH (10:16)
[2024-10-15] MEDS: FERROUS SULFATE 325mg EC TAB PO SCH (10:16)
[2024-10-15] MEDS: LOSARTAN POTASSIUM 50 MG TAB PO SCH (10:17)
[2024-10-15] MEDS: FLORASTOR (S. BOULARDII) 250 MG CAP PO SCH (10:17)
[2024-10-15 11:40] LABS: Basophils # (auto) 0 10 ^3/uL (0-0.2); Basophils % (auto) 0.9 % (0.0-2.0); Eosinophils # (auto) 0.4 10 ^3/uL (0-0.8); Hemoglobin 7.3 g/dL (12.2-16.2); Lymphocytes # (auto) 1.2 10 ^3/uL (0.4-5.4); Mean Corpuscular Hemoglobin 23.5 pg (28.0-32.0); Mean Corpuscular Hgb Conc. 30.1 g/dL (32.0-36.0); Monocytes # (auto) 0.4 10 ^3/uL (0-1.3); Neutrophils # (auto) 2.6 10 ^3/uL (1.6-8.6); Red Cell Distribution Width 17.4 % (11.8-14.3)
[2024-10-15 11:42] LABS: Eosinophils % (auto) 8.3 % (0.0-7.0); Hematocrit 24.1 % (36.0-46.0); Lymphocytes % (auto) 26.3 % (10.0-50.0); Mean Corpuscular Volume 77.9 fL (80.0-100.0); Monocytes % (auto) 9.4 % (0.0-12.0); Neutrophils % (auto) 55.1 % (37.0-80.0); Platelet Count (auto) 276 10^3/uL (140-450); White Blood Cell 4.7 10^3/uL (4.4-10.8)
[2024-10-15] MEDS: IRON SUCROSE COMPLEX 110 ML IV SCH (12:19)
[2024-10-15 12:57] LABS: Alanine Aminotransferase 12 U/L (7-40); Albumin 3.7 g/dL (3.2-4.8); Alkaline Phosphatase 74 U/L (46-116); Anion Gap 10 (5-15); BUN/Creatinine Ratio 16.7 (10.0-20.0); Blood Urea Nitrogen 14 mg/dL (9-23); Carbon Dioxide 25 mmol/L (20-31); Glucose 88 mg/dL (74-106)
[2024-10-15 12:58] LABS: Bilirubin, Total 0.4 mg/dL (0.2-1.0)
[2024-10-15 13:23] LABS: Aspartate Aminotransferase 10 U/L (13-40); Chloride 112 mmol/L (98-107); Sodium 147 mmol/L (136-145); Total Protein 5.4 g/dL (5.7-8.2)
--- NOTE | 2024-10-15 16:21 | DVHINCON2 ---
Date of service: Oct 15, [address] Ford Reason for Consultation Abdominal pain anemia History of Present Illness This 71-year-old female presented to the emergency room with complaints of abdominal pain diarrhea and weakness and dizziness was found to be anemic She got dizzy and fell and hit the right side of the head in the bathroom. She has got was told to be have anemia in the past. The etiology is unclear patient ever had an EGD or colonoscopy in the Patient had a CAT scan which showed some abnormal stomach with some dense material as well as some fecal retention with stools in the colon throughout Denies any hematemesis melena or hemato Dario Patient is on Eliquis for the last five months for apparent blood clots Past Medical History Hypertension pulmonary embolism anemia diabetes history of ulcers and urinary incontinence and arthritis Past Surgical History Appendectomy hysterectomy Family History: Alzheimer's disease G8 MOTHER Arthritis G8 MOTHER, Onset:40's - 50 Family History Noncontributory Social History Denies any smoking or drinking Allergies: Coded Allergies: Penicillins (Verified Allergy, Unknown, 01/11/21) Uncoded Allergies: kiwi (Allergy, Mild, 08/21/20) Home Meds Active Scripts Baclofen (Baclofen) 20 Mg Tab, 1 TAB PO TID PRN, #30 TAB 2 Refills Prov:PEDRO LUIS SANFORD 10/19/23 Furosemide (Lasix) 40 Mg Tab, 40 MG PO DAILY for 20 Days, #20 TAB Prov:PEDRO LUIS SANFORD 10/19/23 Reported Medications Ferrous Sulfate (Ferosul) 325 Mg Tab, 1 TAB PO DAILY 10/14/24 Atorvastatin Calcium (ATORVASTATIN CALCIUM) 40 Mg Tab, 1 TAB PO DAILY 10/14/24 Gabapentin (Gabapentin) 300 Mg Cap, 1 CAP PO TID 10/14/24 Losartan Potassium (Losartan Potassium) 50 Mg Tab, 1 TAB PO DAILY 10/14/24 Sucralfate (Sucralfate) 1 Gm Tab, 1 TAB PO BID 10/14/24 Pantoprazole Sodium Sesquihydr (Pantoprazole Sodium) 40 Mg Tab, 1 TAB PO DAILY 10/14/24 Current Medications Current Medications Medications (Trade) Dose Ordered Sig/Ulysses Route PRN Reason Start Time Stop Time Status Last Admin Diagnostic Test (Pha) (Accu-Chek Comfort Curve T) 1 strip ACHS 10/14/24 17:00 10/15/24 11:58 Insulin Human Regular (InsuLIN R) ACHS SC 10/14/24 17:00 10/14/24 21:08 Losartan Potassium (Cozaar Tablet) 50 mg DAILY PO 10/15/24 10:00 10/15/24 10:17 Sucralfate (Carafate Tab) 1 gm BID PO 10/14/24 22:00 10/15/24 10:16 Atorvastatin Calcium (Lipitor) 40 mg HS PO 10/14/24 22:00 10/14/24 21:08 Ferrous Sulfate 325 mg DAILY PO 10/15/24 10:00 10/15/24 10:16 Pantoprazole Sodium (Protonix) 40 mg BID IV 10/14/24 22:00 10/15/24 09:37 DC 10/14/24 21:08 Iron Sucrose 110 ml @ 110 mls/hr DAILY@1200 IV 10/15/24 12:00 10/19/24 12:59 10/15/24 12:19 Saccharomyces Boulardii (Florastor) 250 mg DAILY PO 10/15/24 10:00 10/15/24 10:17 Pantoprazole Sodium (Protonix) 40 mg DAILY IV 10/15/24 10:00 10/15/24 10:16 Magnesium Oxide (Mag-Ox Tablet) 400 mg DAILY PO 10/16/24 10:00 Review of Systems Noncontributory Vital Signs Vital Signs Date Time Temp Pulse Resp B/P (MAP) Pulse Ox O2 Delivery O2 Flow Rate FiO2 10/15/24 13:00 98.6 60 18 130/40 (70) 92 98.6 10/15/24 08:00 Room Air* 0 21 Physical Exam Moderately built and nourished female in no acute distress Looks pale HEENT exam pallor no icterus Lungs are clear Cardiovascular unremarkable Abdomen is soft mild tenderness in the epigastrium as well as periumbilically No rigidity no guarding no mass Bowel sounds normal Extremities no edema Neuro grossly intact Labs/Diagnostic Data Labs Test 10/15/24 11:57 10/15/24 11:25 10/15/24 05:29 10/14/24 15:25 Range/Units POC Glucose 100 70-106 mg/dl White Blood Count 4.7 4.4-10.8 10^3/uL Red Blood Count 3.10 L 4.0-5.20 10^6/uL Hemoglobin 7.3 L 12.2-16.2 g/dL Hematocrit 24.1 L 36.0-46.0 % Mean Corpuscular Volume 77.9 L 80.0-100.0 fL Mean Corpuscular Hemoglobin 23.5 L 28.0-32.0 pg Mean Corpuscular Hemoglobin Concent 30.1 L 32.0-36.0 g/dL Red Cell Distribution Width 17.4 H 11.8-14.3 % Platelet Count 276 140-450 10^3/uL Mean Platelet Volume 7.5 6.9-10.8 fL Neutrophils (%) (Auto) 55.1 37.0-80.0 % Lymphocytes (%) (Auto) 26.3 10.0-50.0 % Monocytes (%) (Auto) 9.4 0.0-12.0 % Eosinophils (%) (Auto) 8.3 H 0.0-7.0 % Basophils (%) (Auto) 0.9 0.0-2.0 % Neutrophils # (Auto) 2.6 1.6-8.6 10 ^3/uL Lymphocytes # (Auto) 1.2 0.4-5.4 10 ^3/uL Monocytes # (Auto) 0.4 0-1.3 10 ^3/uL Eosinophils # (Auto) 0.4 0-0.8 10 ^3/uL Basophils # (Auto) 0 0-0.2 10 ^3/uL Nucleated Red Blood Cells 0.0 % Sodium Level 147 H 136-145 mmol/L Potassium Level 4.0 3.5-5.1 mmol/L Chloride Level 112 H 98-107 mmol/L Carbon Dioxide Level 25 20-31 mmol/L Anion Gap 10 5-15 Blood Urea Nitrogen 14 9-23 mg/dL Creatinine 0.84 0.550-1.02 mg/dL Glomerular Filtration Rate Calc 71 >90 mL/min BUN/Creatinine Ratio 16.7 10.0-20.0 Serum Glucose 88 74-106 mg/dL Calcium Level 9.0 8.7-10.4 mg/dL Total Bilirubin 0.4 0.2-1.0 mg/dL Aspartate Amino Transferase (AST) 10 L 13-40 U/L Alanine Aminotransferase (ALT) 12 7-40 U/L Alkaline Phosphatase 74 46-116 U/L Total Protein 5.4 L 5.7-8.2 g/dL Albumin 3.7 3.2-4.8 g/dL Magnesium Level 1.9 1.6-2.6 mg/dL Iron Level 12 L 50-170 ug/dL Total Iron Binding Capacity 355 250-425 ug/dL Percent Iron Saturation 3.4 L 15-50 % Urine Color Colorless Yellow Urine Clarity Clear Clear Urine pH 5.0 5.0-9.0 Urine Specific [place] 1.005 1.001-1.035 Urine Protein Negative Negative Urine Ketones Negative Negative Urine Blood Negative Negative /uL Urine Nitrite Negative Negative Urine Bilirubin Negative Negative Urine Urobilinogen Normal Negative mg/dL Urine Leukocyte Esterase 1+ Negative /uL Urine RBC <1 0 - 4 /hpf Urine Microscopic WBC 2 0-5 /HPF Urine Squamous Epithelial Cells Few <5 /hpf Urine Bacteria Few H None Seen /hpf Urine Glucose Normal Normal mg/dL Test 10/14/24 11:45 Range/Units Hemoglobin A1c 5.9 H <5.7 % A1C Assessment 71-year-old with a history of hypertension diabetes anemia arthritis history of ulcers appendectomy hysterectomy came with complaints of abdominal pains and diarrhea diarrhea is better now No gross bleeding but hemoglobin was found to be very low of 7.4 patient a pparently has anemia for some time and never been worked up patient also has got complaints of constipation abnormal CAT scan with possible gastric abnormality in the upper stomach with hiatal hernia Clinical impression Probable ulcer disease or colon problems to be considered with anemia Plan/Recommendation We will recommend EGD and colon evaluation to ensure the any colonic pathology to account for the anemia especially with the abnormal CAT scan Patient is on Eliquis now we will recommend to stop it for at least about three days before we recommend endoscopic evaluation of the stomach and colon We will watch closely for the hemoglobin and watch closely for bleeding We will arrange to do this endoscopies if okay with the hospitalist and balance assembler who is managing the Eliquis Thank you Dr. Solis Plan discussed with: Patient KELLE SOLIS MD Oct 15, 2024 16:21
[2024-10-15] MEDS: ACETAMINOPHEN 325 MG TAB PO PRN (20:48)
[2024-10-16] VITALS (8 sets, daily range): BP systolic 102–134; BP diastolic 41–61; PULSE 58–87; RESP 15–18; TEMP 97.3–98.4; O2SAT 93–96
[2024-10-16 06:07] LABS: Alanine Aminotransferase 10 U/L (7-40); Albumin 3.8 g/dL (3.2-4.8); Alkaline Phosphatase 69 U/L (46-116); Anion Gap 9 (5-15); Aspartate Aminotransferase 15 U/L (13-40); BUN/Creatinine Ratio 11.4 (10.0-20.0); Bilirubin, Total 0.5 mg/dL (0.2-1.0); Calcium 8.7 mg/dL (8.7-10.4); Carbon Dioxide 24 mmol/L (20-31); Glucose 102 mg/dL (74-106); Sodium 144 mmol/L (136-145)
[2024-10-16 06:11] LABS: Basophils # (auto) 0 10 ^3/uL (0-0.2); Eosinophils # (auto) 0.3 10 ^3/uL (0-0.8); Hemoglobin 7.6 g/dL (12.2-16.2); Monocytes # (auto) 0.3 10 ^3/uL (0-1.3)
[2024-10-16 06:14] LABS: Basophils % (auto) 0.9 % (0.0-2.0); Eosinophils % (auto) 5.2 % (0.0-7.0); Lymphocytes # (auto) 0.7 10 ^3/uL (0.4-5.4); Lymphocytes % (auto) 13.6 % (10.0-50.0); Mean Corpuscular Hemoglobin 24.2 pg (28.0-32.0); Mean Corpuscular Hgb Conc. 31.6 g/dL (32.0-36.0); Mean Corpuscular Volume 76.6 fL (80.0-100.0); Neutrophils # (auto) 3.9 10 ^3/uL (1.6-8.6); Neutrophils % (auto) 74.3 % (37.0-80.0); Platelet Count (auto) 267 10^3/uL (140-450); Red Blood Cells 3.13 10^6/uL (4.0-5.20); Red Cell Distribution Width 17.6 % (11.8-14.3); White Blood Cell 5.3 10^3/uL (4.4-10.8)
[2024-10-16 06:27] LABS: Blood Urea Nitrogen 9 mg/dL (9-23); Chloride 111 mmol/L (98-107); Potassium 3.3 mmol/L (3.5-5.1); Total Protein 5.6 g/dL (5.7-8.2)
[2024-10-16] MEDS ORDERED: POTASSIUM CHLORIDE 20 MEQ, LIDOCAINE 1% (LOCAL ANESTH.) 2 ML in SODIUM CHL 0.9% 100 ML IV ONE (07:00)
[2024-10-16] MEDS: POTASSIUM EFFERVESENT TAB 25 MEQ PO ONE (08:31)
[2024-10-16] MEDS: MAGNESIUM OXIDE 400 MG TAB PO SCH (10:08)
[2024-10-16 11:09] LABS: COVID19 ANTIGEN SOFIA FIA NEGATIVE (NEGATIVE); Rapid Influenza A Negative (Negative); Rapid Influenza B Negative (Negative)
--- NOTE | 2024-10-16 12:03 | DVHPN2 ---
Progress Note Date Seen: Oct 16, 2024 Medical Necessity Reason Pt with a Central, PICC or Fol: No Subjective Patient reports: No new complaints Review of Systems: CVS:Normal, RESPIRATORY:Normal, GI:Normal Objective vital signs Vital Sign Date Time Temp Pulse Resp B/P (MAP) Pulse Ox O2 Delivery O2 Flow Rate FiO2 10/16/24 10:08 118/76 10/16/24 09:00 98.3 77 17 96 98.3 10/16/24 08:00 Room Air* 0 21 Total Intake and Output 10/15/24 10/15/24 10/16/24 15:00 23:00 07:00 Intake Total 110 ml 490 ml 450 ml Output Total 500 ml Balance 110 ml 490 ml -50 ml medications Current Medications Medications Dose Ordered Sig/Ulysses Route Start Time Stop Time Status Last Admin Dose Admin Diagnostic Test (Pha) 1 strip ACHS 10/14/24 17:00 10/16/24 11:36 1 STRIP Insulin Human Regular ACHS SC 10/14/24 17:00 10/14/24 21:08 2 UNITS Dextrose 50 ml UD PRN IV 10/14/24 13:15 Acetaminophen/ Hydrocodone Bitart 1 tab Q4HP PRN PO 10/14/24 13:15 10/15/24 10:17 1 TAB Ondansetron HCl 4 mg Q4HP PRN IV 10/14/24 13:15 Acetaminophen 650 mg Q6HP PRN PO 10/14/24 13:15 10/15/24 20:48 650 MG Morphine Sulfate 2 mg Q4HPRN PRN IV 10/14/24 14:30 Nitroglycerin 0.4 mg Q5MINP PRN SL 10/14/24 13:15 Morphine Sulfate 2 mg Q30M PRN IV 10/14/24 14:30 Gabapentin 300 mg TID PO 10/14/24 14:32 10/16/24 05:04 300 MG Losartan Potassium 50 mg DAILY PO 10/15/24 10:00 10/16/24 10:08 50 MG Sucralfate 1 gm BID PO 10/14/24 22:00 10/16/24 10:07 1 GM Atorvastatin Calcium 40 mg HS PO 10/14/24 22:00 10/15/24 20:43 40 MG Ferrous Sulfate 325 mg DAILY PO 10/15/24 10:00 10/16/24 10:08 325 MG Iron Sucrose 110 ml @ 110 mls/hr DAILY@1200 IV 10/15/24 12:00 10/19/24 12:59 10/16/24 11:40 110 MLS/HR Saccharomyces Boulardii 250 mg DAILY PO 10/15/24 10:00 10/16/24 10:08 250 MG Pantoprazole Sodium 40 mg DAILY IV 10/15/24 10:00 10/16/24 10:08 40 MG Magnesium Oxide 400 mg DAILY PO 10/16/24 10:00 10/16/24 10:08 400 MG Examination: GENERAL:Normal, LUNGS:Normal, CVS:Normal, ABDOMEN:Normal, SKIN:Normal laboratory and microbiology Laboratory Tests 10/16/24 05:23 Test 10/16/24 05:23 Range/Units Serum Glucose 102 74-106 mg/dL Problem List/Assessment/Plan Problem List/Assessment/Plan 1. Intractable diarrhea with dark loose stools GI consult, PPI, transfuse for hbg below 7 2. acute on chronic anemia IV iron 3. hx of PE take eliquis at home monitor 4. HLD monitor 5. GI bleed hold anticoagulation, PPI, GI consult Subjective patient is awake and alert Objective: Patient was admitted for intractable diarrhea, patient reports coming off antibiotics for recent UTI. Patient could likely have side effects from recent antibiotics. Patient is subsequently reporting black tarry stools, she does take Eliquis for previous PE in the past. Patient does report having thrombectomy. In addition patient does have acute blood anemia from suspected GI bleed within the setting of chronic iron deficiency anemia. Today patient denies melena and hgb is 7.6. Patient has been getting iron IV infusions. Per GI is planning for upper and lower endoscopy and is requesting for patient to be off eliquis for 3 days, ( last dose 10/13) and obtain cardiac clearance. Patient reports seeing Dr Payne as outpatient will consult his group. Patient had fever last night, COVID and flu both are negative, obtained blodd culture, source is unclear at this time. Plan: Hold anticoagulation, GI consult appreciated, plan for upper and lower endoscopy as per GI , PPI, transfuse for hemoglobin below seven, obtain cardiac clearance. Plan discussed with: Patient My Orders My Orders Orders - OMI COTO Procedure Category Date Status Time Blood Culture AMBER 10/16/24 In Process 06:51 Communication Order ORDERS 10/16/24 Transmitted 09:10 *Consult Dr. Kerry JEAN 10/16/24 Transmitted 10:05 Date of Service: Oct 16, 2024 Billing Provider: HARSHAD OLIVER MD Common Visit Codes: [id number] INP/OBS CARE (MOD) OMI COTO SUPERINTENDENT MEASUREMENT Oct 16, 2024 12:03
--- NOTE | 2024-10-16 14:21 | DVHINCON2 ---
Date of service: Oct 16, 2024 History of Present Illness Shelia Duggna is a 71-year-old female who initially presented to the emergency department on 10/14/2024 with complaints of dark, loose stools and diarrhea for the past three days. Laboratory results revealed a potassium level of 3.3 and a hemoglobin of 7.6. Influenza A/B and COVID swabs were negative. Abdominal CT showed no acute intra-abdominal abnormalities but noted the presence of a hiatal hernia and diverticulosis. Cardiology was consulted to perform cardiac risk stratification in preparation for an upcoming EGD and colonoscopy to further evaluate her symptoms. At present, the patient denies chest pain, shortness of breath, palpitations, orthopnea, paroxysmal nocturnal dyspnea, or dizziness. She is currently taking Eliquis for a history of pulmonary embolism. Her past medical history is significant for hypertension, urinary incontinence, anemia, arthritis, and a gastric ulcer. Family History: Alzheimer's disease G8 MOTHER Arthritis G8 MOTHER, Onset:40's - 50 Allergies: Coded Allergies: Penicillins (Verified Allergy, Unknown, 01/11/21) Uncoded Allergies: kiwi (Allergy, Mild, 08/21/20) Home Meds Active Scripts Baclofen (Baclofen) 20 Mg Tab, 1 TAB PO TID PRN, #30 TAB 2 Refills Prov:PEDRO LUIS SANFORD 10/19/23 Furosemide (Lasix) 40 Mg Tab, 40 MG PO DAILY for 20 Days, #20 TAB Prov:PEDRO LUIS SANFORD 10/19/23 Reported Medications Ferrous Sulfate (Ferosul) 325 Mg Tab, 1 TAB PO DAILY 10/14/24 Atorvastatin Calcium (ATORVASTATIN CALCIUM) 40 Mg Tab, 1 TAB PO DAILY 10/14/24 Gabapentin (Gabapentin) 300 Mg Cap, 1 CAP PO TID 10/14/24 Losartan Potassium (Losartan Potassium) 50 Mg Tab, 1 TAB PO DAILY 10/14/24 Sucralfate (Sucralfate) 1 Gm Tab, 1 TAB PO BID 10/14/24 Pantoprazole Sodium Sesquihydr (Pantoprazole Sodium) 40 Mg Tab, 1 TAB PO DAILY 10/14/24 Current Medications Current Medications Medications (Trade) Dose Ordered Sig/Ulysses Route PRN Reason Start Time Stop Time Status Last Admin Magnesium Oxide (Mag-Ox Tablet) 400 mg DAILY PO 10/16/24 10:00 10/16/24 10:08 Review of Systems A 14-point review of systems is negative unless otherwise noted above Vital Signs Vital Signs Date Time Temp Pulse Resp B/P (MAP) Pulse Ox O2 Delivery O2 Flow Rate FiO2 10/16/24 13:06 97.3 68 17 107/61 (76) 95 97.3 10/16/24 08:00 Room Air* 0 21 Physical Exam Heart: S1 and S2 present. The patient is in sinus rhythm. Lungs: Clear to auscultation Abdomen: Benign. Extremities: Distal pulses palpable, 2+. No evidence for peripheral edema Labs/Diagnostic Data Labs Test 10/16/24 11:18 10/16/24 10:15 10/16/24 05:23 10/15/24 21:00 Range/Units POC Glucose 105 70-106 mg/dl Influenza Type A Antigen Negative Negative Influenza Type B Antigen Negative Negative SARS-CoV-2 Antigen (Rapid) Negative NEGATIVE White Blood Count 5.3 4.4-10.8 10^3/uL Red Blood Count 3.13 L 4.0-5.20 10^6/uL Hemoglobin 7.6 L 12.2-16.2 g/dL Hematocrit 24.0 L 36.0-46.0 % Mean Corpuscular Volume 76.6 L 80.0-100.0 fL Mean Corpuscular Hemoglobin 24.2 L 28.0-32.0 pg Mean Corpuscular Hemoglobin Concent 31.6 L 32.0-36.0 g/dL Red Cell Distribution Width 17.6 H 11.8-14.3 % Platelet Count 267 140-450 10^3/uL Mean Platelet Volume 7.9 6.9-10.8 fL Neutrophils (%) (Auto) 74.3 37.0-80.0 % Lymphocytes (%) (Auto) 13.6 10.0-50.0 % Monocytes (%) (Auto) 6.0 0.0-12.0 % Eosinophils (%) (Auto) 5.2 0.0-7.0 % Basophils (%) (Auto) 0.9 0.0-2.0 % Neutrophils # (Auto) 3.9 1.6-8.6 10 ^3/uL Lymphocytes # (Auto) 0.7 0.4-5.4 10 ^3/uL Monocytes # (Auto) 0.3 0-1.3 10 ^3/uL Eosinophils # (Auto) 0.3 0-0.8 10 ^3/uL Basophils # (Auto) 0 0-0.2 10 ^3/uL Nucleated Red Blood Cells 0.0 % Sodium Level 144 136-145 mmol/L Potassium Level 3.3 L 3.5-5.1 mmol/L Chloride Level 111 H 98-107 mmol/L Carbon Dioxide Level 24 20-31 mmol/L Anion Gap 9 5-15 Blood Urea Nitrogen 9 9-23 mg/dL Creatinine 0.79 0.550-1.02 mg/dL Glomerular Filtration Rate Calc 77 >90 mL/min BUN/Creatinine Ratio 11.4 10.0-20.0 Serum Glucose 102 74-106 mg/dL Calcium Level 8.7 8.7-10.4 mg/dL Total Bilirubin 0.5 0.2-1.0 mg/dL Aspartate Amino Transferase (AST) 15 13-40 U/L Alanine Aminotransferase (ALT) 10 7-40 U/L Alkaline Phosphatase 69 46-116 U/L Total Protein 5.6 L 5.7-8.2 g/dL Albumin 3.8 3.2-4.8 g/dL Test 10/15/24 05:29 10/14/24 15:25 10/14/24 11:45 Range/Units Magnesium Level 1.9 1.6-2.6 mg/dL Iron Level 12 L 50-170 ug/dL Total Iron Binding Capacity 355 250-425 ug/dL Percent Iron Saturation 3.4 L 15-50 % Urine Color Colorless Yellow Urine Clarity Clear Clear Urine pH 5.0 5.0-9.0 Urine Specific [place] 1.005 1.001-1.035 Urine Protein Negative Negative Urine Ketones Negative Negative Urine Blood Negative Negative /uL Urine Nitrite Negative Negative Urine Bilirubin Negative Negative Urine Urobilinogen Normal Negative mg/dL Urine Leukocyte Esterase 1+ Negative /uL Urine RBC <1 0 - 4 /hpf Urine Microscopic WBC 2 0-5 /HPF Urine Squamous Epithelial Cells Few <5 /hpf Urine Bacteria Few H None Seen /hpf Urine Glucose Normal Normal mg/dL Hemoglobin A1c 5.9 H <5.7 % A1C Plan/Recommendation Nuclear stress test (07/2024) 1. Medium sized mild to moderate fixed defect in proximal and mid lateral segments. 2. Medium sized mild to moderate minimally reversible defect in proximal and mid inferior and inferoseptal segments. EF 76% TID 0.73 Patient does not want to do any invasive measures, wants to continue medical therapy and monitor symptoms. Echocardiogram: (07/2024) Preserved ejection fraction 70%. Mild MR/TR. RVSP 47 mmHg Cardiac risk stratification: From a cardiac perspective, Shelia is considered intermediate risk for a plan of undergoing low-risk EGD and colonoscopy. Cardiac-domingo, she may proceed with plan of procedure under appropriate intra-operative and post-operative cardiac monitoring. Hold Eliquis for 3 days prior to procedure. Recommend Lovenox 100mg/kg daily in the interim. Avoid hypotension Cardiology Recommendations: Proceed with close rate and rhythm surveillance Proceed with close hemodynamic surveillance Proceed with optimized blood pressure control Transfuse to sustain HGB levels above 7.0 Sustain Magnesium level greater than 2.0 Sustain Potassium level greater than 4.0 Follow up renal function and electrolytes Management in Telemetry Will proceed to follow from a cardiac perspective Further recommendations per clinical progression All available labs, EKGs, and images were personally reviewed Patient's status, findings, and plan of care was discussed and reviewed with [facility] physician Dr. Payne, who is in agreement with current plan of care. Plan of care discussed with and agreed upon by patient/Primary RN. Prognosis: Guarded Thank you for allowing me to participate in the care of this patient. Further recommendations will depend on clinical progression, hospitalist, and other consultants. Will continue to follow with Primary. If you have any questions, please do not hesitate to contact me. A total of 75 minutes was spent reviewing the patient record, examining the patient, making a diagnostic and therapeutic plan, discussing this plan with medical personnel, following up on diagnostic studies and following the patient for clinical stability excluding any and all procedures. At least 50% of this time was spent in direct, [id number] contact. Plan discussed with: Patient SHRUTHI MERCHANT NP Oct 16, 2024 14:21
[2024-10-16] MEDS: BISACODYL 5 MG EC TAB PO ONE (16:32)
[2024-10-16] MEDS: GOLYTELY 4L KIT PO ONE (16:32)
--- NOTE | 2024-10-16 18:34 | DVHPN2 ---
Progress Note - Dictate Date Seen: Oct 16, 2024 Medical Necessity Reason Pt with a Central, PICC or Fol: No Subjective Patient has got some complaints of abdominal pain no nausea no vomiting no diarrhea tolerating clear liquids vital signs Vital Sign Date Time Temp Pulse Resp B/P (MAP) Pulse Ox O2 Delivery O2 Flow Rate FiO2 10/16/24 17:10 97.7 70 17 113/50 (71) 94 97.7 10/16/24 08:00 Room Air* 0 21 Total Intake and Output 10/15/24 10/15/24 10/16/24 15:00 23:00 07:00 Intake Total 110 ml 490 ml 450 ml Output Total 500 ml Balance 110 ml 490 ml -50 ml medications Current Medications Medications Dose Ordered Sig/Ulysses Route Start Time Stop Time Status Last Admin Dose Admin Diagnostic Test (Pha) 1 strip ACHS 10/14/24 17:00 10/16/24 16:36 1 STRIP Insulin Human Regular ACHS SC 10/14/24 17:00 10/14/24 21:08 2 UNITS Dextrose 50 ml UD PRN IV 10/14/24 13:15 Acetaminophen/ Hydrocodone Bitart 1 tab Q4HP PRN PO 10/14/24 13:15 10/15/24 10:17 1 TAB Ondansetron HCl 4 mg Q4HP PRN IV 10/14/24 13:15 Acetaminophen 650 mg Q6HP PRN PO 10/14/24 13:15 10/15/24 20:48 650 MG Morphine Sulfate 2 mg Q4HPRN PRN IV 10/14/24 14:30 Nitroglycerin 0.4 mg Q5MINP PRN SL 10/14/24 13:15 Morphine Sulfate 2 mg Q30M PRN IV 10/14/24 14:30 Gabapentin 300 mg TID PO 10/14/24 14:32 10/16/24 14:09 300 MG Losartan Potassium 50 mg DAILY PO 10/15/24 10:00 10/16/24 10:08 50 MG Sucralfate 1 gm BID PO 10/14/24 22:00 10/16/24 10:07 1 GM Atorvastatin Calcium 40 mg HS PO 10/14/24 22:00 10/15/24 20:43 40 MG Ferrous Sulfate 325 mg DAILY PO 10/15/24 10:00 10/16/24 10:08 325 MG Iron Sucrose 110 ml @ 110 mls/hr DAILY@1200 IV 10/15/24 12:00 10/19/24 12:59 10/16/24 11:40 110 MLS/HR Saccharomyces Boulardii 250 mg DAILY PO 10/15/24 10:00 10/16/24 10:08 250 MG Pantoprazole Sodium 40 mg DAILY IV 10/15/24 10:00 10/16/24 10:08 40 MG Magnesium Oxide 400 mg DAILY PO 10/16/24 10:00 10/16/24 10:08 400 MG objective Abdomen is soft mild tenderness in the epigastrium no rigidity no guarding [place] Scan had shown some fullness in the stomach in the hiatal hernia and some abnormal gastric contents Hemoglobin is low and stable Clinical impression Anemia probable GI bleeding And has been on Eliquis and needs Eliquis as an outpatient laboratory and microbiology Laboratory Tests 10/16/24 05:23 Test 10/16/24 05:23 Range/Units Serum Glucose 102 74-106 mg/dL Assessment/Plan 71-year-old with a history of hypertension diabetes anemia arthritis history of ulcers appendectomy hysterectomy came with complaints of abdominal pains and diarrhea diarrhea is better now Patient is on Eliquis and anemic Possibility of GI bleed from ulcer disease or other pathology to be Suggestions Since patient we will need continuing Eliquis is is better to make sure there is no GI pathology to account for the anemia and the GI symptoms especially with the abnormal CAT scan will recommend EGD and colon evaluation and further workup accordingly Procedure risks benefits alternatives all explained to the patient and the family and agreeable for the same Thank you Dr. Will Ceballos Plan discussed with: Patient KELLE ABBASI MD Oct 16, 2024 18:34
[2024-10-17] VITALS (9 sets, daily range): BP systolic 105–135; BP diastolic 50–69; PULSE 62–128; RESP 15–18; TEMP 97.2–98.4; O2SAT 91–97
--- NOTE | 2024-10-17 08:48 | DVH ---
INDICATION: pre op TECHNIQUE: Frontal view of the chest. COMPARISON: XY CHEST XRAY 1 VIEW on DOS: 10/19/23, CHEST PORTABLE on DOS: 01/12/21, CXRP on DOS: 01/12/21, CHEST PORTABLE on DOS: 01/11/21, CXRP on DOS: 01/11/21 FINDINGS: . The heart and mediastinal contours are grossly unremarkable. There is no evidence of pleural disea se. The lungs are clear. The bony structures of the chest are intact without fracture. IMPRESSION: 1. No evidence of acute disease. Moderate hiatal hernia
--- NOTE | 2024-10-17 09:08 | DVHPN2 ---
Progress Note - Dictate Date Seen: Oct 17, 2024 Medical Necessity Reason Pt with a Central, PICC or Fol: No vital signs Vital Sign Date Time Temp Pulse Resp B/P (MAP) Pulse Ox O2 Delivery O2 Flow Rate FiO2 10/17/24 05:00 98.1 87 18 105/58 (74) 97 98.1 10/16/24 20:00 Room Air* 0 21 Total Intake and Output 10/16/24 10/16/24 10/17/24 15:00 23:00 07:00 Intake Total 110 ml 350 ml 0 ml Balance 110 ml 350 ml 0 ml medications Current Medications Medications Dose Ordered Sig/Ulysses Route Start Time Stop Time Status Last Admin Dose Admin Diagnostic Test (Pha) 1 strip ACHS 10/14/24 17:00 10/17/24 05:58 1 STRIP Insulin Human Regular ACHS SC 10/14/24 17:00 10/14/24 21:08 2 UNITS Dextrose 50 ml UD PRN IV 10/14/24 13:15 Acetaminophen/ Hydrocodone Bitart 1 tab Q4HP PRN PO 10/14/24 13:15 10/15/24 10:17 1 TAB Ondansetron HCl 4 mg Q4HP PRN IV 10/14/24 13:15 Acetaminophen 650 mg Q6HP PRN PO 10/14/24 13:15 10/15/24 20:48 650 MG Morphine Sulfate 2 mg Q4HPRN PRN IV 10/14/24 14:30 Nitroglycerin 0.4 mg Q5MINP PRN SL 10/14/24 13:15 Morphine Sulfate 2 mg Q30M PRN IV 10/14/24 14:30 Gabapentin 300 mg TID PO 10/14/24 14:32 10/17/24 05:37 300 MG Losartan Potassium 50 mg DAILY PO 10/15/24 10:00 10/16/24 10:08 50 MG Sucralfate 1 gm BID PO 10/14/24 22:00 10/16/24 20:29 1 GM Atorvastatin Calcium 40 mg HS PO 10/14/24 22:00 10/16/24 20:29 40 MG Ferrous Sulfate 325 mg DAILY PO 10/15/24 10:00 10/16/24 10:08 325 MG Iron Sucrose 110 ml @ 110 mls/hr DAILY@1200 IV 10/15/24 12:00 10/19/24 12:59 10/16/24 11:40 110 MLS/HR Saccharomyces Boulardii 250 mg DAILY PO 10/15/24 10:00 10/16/24 10:08 250 MG Pantoprazole Sodium 40 mg DAILY IV 10/15/24 10:00 10/16/24 10:08 40 MG Magnesium Oxide 400 mg DAILY PO 10/16/24 10:00 10/16/24 10:08 400 MG laboratory and microbiology Laboratory Tests 10/16/24 05:23 Test 10/16/24 05:23 Range/Units Serum Glucose 102 74-106 mg/dL Assessment/Plan Patient is a 79-year-old female who presented with abdominal pain/tarry stool/diarrhea for few days. Cardiology was involved for cardiac aspects of care. Patient is known to our practice from outside and before. She recently completed antibiotic therapy for UTI. Not in acute distress. No JVD. Mucosa is pink and wet. No carotid bruit. Not using accessory muscles of breathing. Lungs are clear to auscultation. Cardiac: Regular, no thrill/gallop. Abdomen is soft. Bowel sound is positive. There is no gross mass/hepatomegaly. Extremities do not reveal edema. Dorsalis pedis is 2+ bilateral Past medical history includes prediabetes, hypertension, old history of pulmonary emboli (on Eliis as outpatient), DJD, urinary incontinence, obesity, hiatal hernia, history of gastric ulcer, anemia, arthritis, DJD, old history of appendectomy/hysterectomy. Uses walker for ambulation. Echocardiogram of August 02, 2024 (performed in the office) revealed preserved left ventricular systolic function Nuclear stress test of July 2024 revealed fixed defect and the patient decided to proceed with medical management for it. Hemoglobin: 7.5 - 7.3 - 7.3 - 7.6 Creatinine: 0.88 - 0.85 - 0.84 - 0.79 Potassium: 3.4 - 3.8 - 4.0 - 3.3 Magnesium: 1.9 CT of the abdomen and pelvis reported: IMPRESSION: No acute intraabdominal abnormality. Stomach containing hiatal hernia contains dense material likely food debris. Moderate colonic diverticulosis. Tele revealed sinus rhythm Patient is a 79-year-old female who presented with abdominal pain/diarrhea. There has been tarry stool. Patient is found to have diverticulosis. GI has seen the patient and is planning for colonoscopy/EGD. Cardiology was involved for cardiac risk stratification. Intractable diarrhea Tarry stool GI bleeding? Diabetes mellitus Hypertension Old history of pulmonary emboli, on chronic/long-term anticoagulation (Eliquis as outpatient) Anemia Obesity Diverticulosis Cardiac suggestion for management: Manage on telemetry Follow-up electrolytes and kidney function tests and correct abnormalities Keep potassium above 4 and magnesium above 2 Cardiac-domingo, the patient is moderate risk patient for low risk EGD/colonoscopy. Cardiac-domingo, you can proceed with the procedures under appropriate intra and postoperative hemodynamic monitoring. Avoid hypotension. Suggestion is to hold off Eliquis for at least 2 days prior to the procedures Restart long-term full anticoagulation, after clinical stability and ruling out acute bleeding. Further evaluation and management depends on the above and clinical course A total of 55 minutes was spent reviewing the patient record, examining the patient, making a diagnostic and therapeutic plan, discussing this plan with medical personnel, following up on diagnostic studies and following the patient for clinical stability excluding any and all procedures. At least 50% of this time was spent in direct, [id number] contact. Thank you for allowing me to participate in this patient's care. Further recommendations will depend on patient's clinical course. Please do not hesitate to contact me if you have any questions or concerns. This medical document was created using electronic medical record system with [employer] computerized dictation system. Although this document has been carefully reviewed, there may still be some phonetic and typographical errors. These areas are purely typographical due to the imperfection of the software programs, and do not reflect any compromise in the patient's medical care Plan discussed with: Patient, Other (nurse) PHILIPP RODRIGUEZ MD Oct 17, 2024 09:08
--- NOTE | 2024-10-17 12:17 | DVHPN2 ---
Progress Note - Dictate Date Seen: Oct 17, 2024 Medical Necessity Reason Pt with a Central, PICC or Fol: No vital signs Vital Sign Date Time Temp Pulse Resp B/P (MAP) Pulse Ox O2 Delivery O2 Flow Rate FiO2 10/17/24 08:51 98.4 64 17 112/69 (83) 94 98.4 10/16/24 20:00 Room Air* 0 21 Total Intake and Output 10/16/24 10/16/24 10/17/24 15:00 23:00 07:00 Intake Total 110 ml 350 ml 0 ml Balance 110 ml 350 ml 0 ml medications Current Medications Medications Dose Ordered Sig/Ulysses Route Start Time Stop Time Status Last Admin Dose Admin Diagnostic Test (Pha) 1 strip ACHS 10/14/24 17:00 10/17/24 05:58 1 STRIP Insulin Human Regular ACHS SC 10/14/24 17:00 10/14/24 21:08 2 UNITS Dextrose 50 ml UD PRN IV 10/14/24 13:15 Acetaminophen/ Hydrocodone Bitart 1 tab Q4HP PRN PO 10/14/24 13:15 10/15/24 10:17 1 TAB Ondansetron HCl 4 mg Q4HP PRN IV 10/14/24 13:15 Acetaminophen 650 mg Q6HP PRN PO 10/14/24 13:15 10/15/24 20:48 650 MG Morphine Sulfate 2 mg Q4HPRN PRN IV 10/14/24 14:30 Nitroglycerin 0.4 mg Q5MINP PRN SL 10/14/24 13:15 Morphine Sulfate 2 mg Q30M PRN IV 10/14/24 14:30 Gabapentin 300 mg TID PO 10/14/24 14:32 10/17/24 05:37 300 MG Losartan Potassium 50 mg DAILY PO 10/15/24 10:00 10/16/24 10:08 50 MG Sucralfate 1 gm BID PO 10/14/24 22:00 10/16/24 20:29 1 GM Atorvastatin Calcium 40 mg HS PO 10/14/24 22:00 10/16/24 20:29 40 MG Ferrous Sulfate 325 mg DAILY PO 10/15/24 10:00 10/16/24 10:08 325 MG Iron Sucrose 110 ml @ 110 mls/hr DAILY@1200 IV 10/15/24 12:00 10/19/24 12:59 10/16/24 11:40 110 MLS/HR Saccharomyces Boulardii 250 mg DAILY PO 10/15/24 10:00 10/16/24 10:08 250 MG Pantoprazole Sodium 40 mg DAILY IV 10/15/24 10:00 10/16/24 10:08 40 MG Magnesium Oxide 400 mg DAILY PO 10/16/24 10:00 10/16/24 10:08 400 MG laboratory and microbiology Laboratory Tests 10/16/24 05:23 Test 10/16/24 05:23 Range/Units Serum Glucose 102 74-106 mg/dL Problem List 1. Intractable diarrhea with dark loose stools GI consult, PPI, transfuse for hbg below 7 2. acute on chronic anemia IV iron 3. hx of PE take eliquis at home monitor 4. HLD monitor 5. GI bleed hold anticoagulation, PPI, GI consult Assessment/Plan Subjective: Patient was not in room during assessment. Objective: Patient was taken down for upper EGD and colonoscopy by GI. Patient was admitted for GI bleed. She has a history of acute on chronic iron deficiency anemia. Patient is on chronic anticoagulation with Eliquis. Plan: Continue current treatment. Transfuse if hemoglobin <7. Repeat labs ordered for AM. Hold anticoagulation. Continue PPI. Plan discussed with: Patient, Other MARK LANDON NP Oct 17, 2024 12:17
[2024-10-17] MEDS ORDERED: fentaNYL CITRATE 100 MCG/2 ML VL ONE (13:41)
[2024-10-17] MEDS ORDERED: PROPOFOL 10 MG/ML 20 ML IV ONE (13:41)
[2024-10-17] MEDS ORDERED: ONDANSETRON HCL 4 MG/2 ML VIAL ONE (13:41)
[2024-10-17] MEDS ORDERED: KETAMINE 50mg/ML 1ml syringe ONE (13:41)
[2024-10-17] MEDS ORDERED: LIDOCAINE 1% INJ PF 5ML AMP ONE (13:41)
[2024-10-17] MEDS ORDERED: SODIUM CHLORIDE LOCK 10 ML ONE (13:41)
[2024-10-17] MEDS ORDERED: MIDAZOLAM HCL 2MG/2ML 2ml VIAL (1mg/ml) ONE (13:41)
[2024-10-17] MEDS ORDERED: MORPHINE SULFATE 4 MG/ML SYR/VIAL IV PRN ×2 (13:45→14:00)
[2024-10-17] MEDS ORDERED: HYDROmorphone HCL 2 MG/ML VL/or syr IV PRN ×2 (13:45)
[2024-10-17] MEDS: ACCU-CHEK COMFORT CURVE STRIP VI ONE (13:45)
[2024-10-17] MEDS: KETOROLAC TROMETH 30 MG/ML 1ML VIAL IV ONE (13:45)
[2024-10-17] MEDS ORDERED: MORPHINE SULFATE INJ 2 MG/ml SYRG IV PRN (13:45)
[2024-10-17] MEDS: METOCLOPRAMIDE HCL 5MG/ml INJ 2ml VIAL IV ONE (13:45)
[2024-10-17] MEDS: LIDOCAINE VISCOUS 2% 15ML UD ONE (13:48)
--- NOTE | 2024-10-17 15:31 | DVHOP2 ---
Operative Report DATE OF PROCEDURE: 10/17/24 INDICATIONS FOR THE PROCEDURE: Abdominal pain anemia abnormal CAT abnormal gastric contents PROCEDURE PERFORMED: 1. Esophagogastroduodenoscopy and biopsy with cold biopsy forceps POSTOPERATIVE DIAGNOSIS: Large hiatal hernia tortuous esophagus in the distal esophagus No esophagitis no ulcers Antral gastritis with erosions biopsies taken No ulcers no mass lesion INFORMED CONSENT: The risks and benefits and alternatives were explained to the patient and informed consent was obtained. PROCEDURE IN DETAIL: The patient was kept NPO after midnight. In the endoscopy room, procedure was done under MAC to get her sedated. Olympus gastroscope was passed through the oropharynx into the stomach and the duodenum, and the findings were as follows. Esophagus: 3 cm hiatal hernia large one with tortuous esophagus in the distal esophagus No Esophagitis No Esophageal ulcer No Esophageal stricture Stomach: Fundus: Normal Body and antrum erythematous streaks with erosions suggestive of gastritis biopsies taken to ensure there was no H pylori Pylorus normal Duodenum unremarkable Endoscopic impression large hiatal hernia with tortuous esophagus in the distal Distal antral gastritis Suggestions Await the biopsy results Aggressive treatment with PPIs Small frequent meals Thank you for asking me to take part in the care of this pleasant patient KELLE Christian MD Oct 17, 2024 15:31
--- NOTE | 2024-10-17 15:35 | DVHOP2 ---
Operative Report DATE OF PROCEDURE: 10/17/24 INDICATIONS FOR THE PROCEDURE: Anemia possible GI bleed loss PROCEDURE PERFORMED: Colonoscopy and biopsy with cold biopsy forceps POSTOPERATIVE DIAGNOSIS: Diverticulosis extensive Sigmoiditis biopsies taken with cold biopsy forceps Internal hemorrhoids INFORMED CONSENT: The risks and benefits and alternatives were explained to the patient and informed consent was obtained. PROCEDURE IN DETAIL: The patient was kept NPO after midnight. The procedure was done under MAC with anesthesia Olympus colonoscope was passed through the rectum all the way up to cecum. Cecum, ascending colon, hepatic flexure, transverse colon, splenic flexure, descending colon, and sigmoid colon were all visualized and the findings were as follows: Findings: In the right colon there was some thick stools which was cleaned out as much as possible grossly no lesions seen In the descending and sigmoid colon there were quite a few diverticula seen as w ell as also a few in the right colon without any bleeding In the rectum the internal hemorrhoids seen Sigmoid there were erythematous streaks suggestive of mild nonspecific sigmoiditis biopsies were taken ; these are close to the diverticulae ENDOSCOPIC IMPRESSION: Extensive diverticulosis with any bleeding Mild nonspecific sigmoiditis close to the diverticulum Internal hemorrhoids SUGGESTIONS: Symptomatic treatment of the hemorrhoids Dietary Adjustment for diverticulosis Unable to explain the anemia from this study With warm regards, Thank you KELLE Christian MD Oct 17, 2024 15:35
[2024-10-18] VITALS (8 sets, daily range): BP systolic 103–135; BP diastolic 35–69; PULSE 60–92; RESP 14–18; TEMP 96–98.8; O2SAT 92–96
[2024-10-18 06:17] LABS: Basophils # (auto) 0 10 ^3/uL (0-0.2); Eosinophils # (auto) 0.3 10 ^3/uL (0-0.8); Eosinophils % (auto) 6.9 % (0.0-7.0); Hematocrit 25.3 % (36.0-46.0); Hemoglobin 7.5 g/dL (12.2-16.2); Lymphocytes # (auto) 1.6 10 ^3/uL (0.4-5.4); Lymphocytes % (auto) 33.2 % (10.0-50.0); Mean Corpuscular Hemoglobin 23.6 pg (28.0-32.0); Mean Corpuscular Hgb Conc. 29.8 g/dL (32.0-36.0); Mean Corpuscular Volume 79.3 fL (80.0-100.0); Monocytes # (auto) 0.4 10 ^3/uL (0-1.3); Monocytes % (auto) 8.3 % (0.0-12.0); Neutrophils # (auto) 2.5 10 ^3/uL (1.6-8.6); Neutrophils % (auto) 50.6 % (37.0-80.0); Nucleated Red Blood Cells % 0.2 %; Platelet Count (auto) 285 10^3/uL (140-450); Red Blood Cells 3.19 10^6/uL (4.0-5.20); Red Cell Distribution Width 18.1 % (11.8-14.3)
[2024-10-18 06:26] LABS: Anion Gap 11 (5-15); Carbon Dioxide 25 mmol/L (20-31); Sodium 145 mmol/L (136-145)
[2024-10-18 06:27] LABS: Calcium 8.7 mg/dL (8.7-10.4)
[2024-10-18 06:30] LABS: Chloride 109 mmol/L (98-107); Potassium 3.4 mmol/L (3.5-5.1)
[2024-10-18 06:32] LABS: BUN/Creatinine Ratio 8.2 (10.0-20.0); Glucose 85 mg/dL (74-106); Magnesium 1.9 mg/dL (1.6-2.6)
[2024-10-18 06:40] LABS: Blood Urea Nitrogen 7 mg/dL (9-23)
--- NOTE | 2024-10-18 07:08 | DVHPN2 ---
Progress Note - Dictate Date Seen: Oct 18, 2024 Medical Necessity Reason Pt with a Central, PICC or Fol: No vital signs Vital Sign Date Time Temp Pulse Resp B/P (MAP) Pulse Ox O2 Delivery O2 Flow Rate FiO2 10/18/24 05:00 96.0 62 14 103/56 (72) 92 96.0 10/17/24 20:00 Room Air* 0 21 Total Intake and Output 10/17/24 10/17/24 10/18/24 15:00 23:00 07:00 Intake Total 50 ml 300 ml 200 ml Balance 50 ml 300 ml 200 ml medications Current Medications Medications Dose Ordered Sig/Ulysses Route Start Time Stop Time Status Last Admin Dose Admin Diagnostic Test (Pha) 1 strip ACHS 10/14/24 17:00 10/18/24 06:17 1 STRIP Insulin Human Regular ACHS SC 10/14/24 17:00 10/14/24 21:08 2 UNITS Dextrose 50 ml UD PRN IV 10/14/24 13:15 Acetaminophen/ Hydrocodone Bitart 1 tab Q4HP PRN PO 10/14/24 13:15 10/15/24 10:17 1 TAB Ondansetron HCl 4 mg Q4HP PRN IV 10/14/24 13:15 Acetaminophen 650 mg Q6HP PRN PO 10/14/24 13:15 10/15/24 20:48 650 MG Morphine Sulfate 2 mg Q4HPRN PRN IV 10/14/24 14:30 Nitroglycerin 0.4 mg Q5MINP PRN SL 10/14/24 13:15 Morphine Sulfate 2 mg Q30M PRN IV 10/14/24 14:30 Gabapentin 300 mg TID PO 10/14/24 14:32 10/18/24 06:16 300 MG Losartan Potassium 50 mg DAILY PO 10/15/24 10:00 10/16/24 10:08 50 MG Sucralfate 1 gm BID PO 10/14/24 22:00 10/17/24 22:00 1 GM Atorvastatin Calcium 40 mg HS PO 10/14/24 22:00 10/16/24 20:29 40 MG Ferrous Sulfate 325 mg DAILY PO 10/15/24 10:00 10/16/24 10:08 325 MG Iron Sucrose 110 ml @ 110 mls/hr DAILY@1200 IV 10/15/24 12:00 10/19/24 12:59 10/17/24 15:25 110 MLS/HR Saccharomyces Boulardii 250 mg DAILY PO 10/15/24 10:00 10/16/24 10:08 250 MG Pantoprazole Sodium 40 mg DAILY IV 10/15/24 10:00 10/17/24 15:25 40 MG Magnesium Oxide 400 mg DAILY PO 10/16/24 10:00 10/16/24 10:08 400 MG Morphine Sulfate 1 mg Q30M PRN IV 10/17/24 13:45 10/17/24 15:46 UNV Morphine Sulfate 1 mg Q30M PRN IV 10/17/24 14:00 laboratory and microbiology Laboratory Tests 10/18/24 05:36 Test 10/18/24 05:36 Range/Units Serum Glucose 85 74-106 mg/dL Assessment/Plan Patient is a 79-year-old female who presented with abdominal pain/tarry stool/diarrhea for few days. Cardiology was involved for cardiac aspects of care. Patient is known to our practice from outside and before. She recently completed antibiotic therapy for UTI. Not in acute distress. No JVD. Mucosa is pink and wet. No carotid bruit. Not using accessory muscles of breathing. Lungs are clear to auscultation. Cardiac: Regular, no thrill/gallop. Abdomen is soft. Bowel sound is positive. There is no gross mass/hepatomegaly. Extremities do not reveal edema. Dorsalis pedis is 2+ bilateral Past medical history includes prediabetes, hypertension, old history of pulmonary emboli (on [facility] as outpatient), DJD, urinary incontinence, obesity, hiatal hernia, history of gastric ulcer, anemia, arthritis, DJD, old history of appendectomy/hysterectomy. Uses walker for ambulation. Echocardiogram of August 02, 2024 (performed in the office) revealed preserved left ventricular systolic function Nuclear stress test of July 2024 revealed fixed defect and the patient decided to proceed with medical management for it. Hemoglobin: 7.5 - 7.3 - 7.3 - 7.6 - 7.5 Creatinine: 0.88 - 0.85 - 0.84 - 0.79 - 0.85 Potassium: 3.4 - 3.8 - 4.0 - 3.3 - 3.4 Magnesium: 1.9 - 1.9 CT of the abdomen and pelvis reported: IMPRESSION: No acute intraabdominal abnormality. Stomach containing hiatal hernia contains dense material likely food debris. Moderate colonic diverticulosis. Chest xry revealed: IMPRESSION: 1. No evidence of acute disease. Moderate hiatal hernia Tele revealed sinus rhythm Patient is a 79-year-old female who presented with abdominal pain/diarrhea. There has been tarry stool. Patient is found to have diverticulosis. GI has seen the patient and is planning for colonoscopy/EGD. Cardiology was involved for cardiac risk stratification. Intractable diarrhea Tarry stool GI bleeding? Diabetes mellitus Hypertension Old history of pulmonary emboli, on chronic/long-term anticoagulation (Eliquis as outpatient) Anemia Obesity Diverticulosis Cardiac suggestion for management: Manage on telemetry Follow-up electrolytes and kidney function tests and correct abnormalities Keep potassium above 4 and magnesium above 2 Cardiac-domingo, the patient is moderate risk patient for low risk EGD/colonoscopy. Cardiac-domingo, you can proceed with the procedures under appropriate intra and postoperative hemodynamic monitoring. Avoid hypotension. Suggestion is to hold off Eliquis for at least 2 days prior to the procedures Restart long-term full anticoagulation, after clinical stability and ruling out acute bleeding. Get GI permission. Further evaluation and management depends on the above and clinical course A total of 55 minutes was spent reviewing the patient record, examining the patient, making a diagnostic and therapeutic plan, discussing this plan with medical personnel, following up on diagnostic studies and following the patient for clinical stability excluding any and all procedures. At least 50% of this time was spent in direct, [id number] contact. Thank you for allowing me to participate in this patient's care. Further recommendations will depend on patient's clinical course. Please do not hesitate to contact me if you have any questions or concerns. This medical document was created using electronic medical record system with [employer] computerized dictation system. Although this document has been carefully reviewed, there may still be some phonetic and typographical errors. These areas are purely typographical due to the imperfection of the software programs, and do not reflect any compromise in the patient's medical care Plan discussed with: Patient, Other (nurse) PHILIPP RODRIGUEZ MD Oct 18, 2024 07:08
--- NOTE | 2024-10-18 16:02 | DVHPN2 ---
Progress Note - Dictate Date Seen: Oct 18, 2024 Medical Necessity Reason Pt with a Central, PICC or Fol: No vital signs Vital Sign Date Time Temp Pulse Resp B/P (MAP) Pulse Ox O2 Delivery O2 Flow Rate FiO2 10/18/24 14:24 98.2 67 17 104/53 (70) 93 98.2 10/18/24 08:00 Room Air* 0 21 Total Intake and Output 10/17/24 10/17/24 10/18/24 14:59 22:59 06:59 Intake Total 50 ml 300 ml 200 ml Balance 50 ml 300 ml 200 ml medications Current Medications Medications Dose Ordered Sig/Ulysses Route Start Time Stop Time Status Last Admin Dose Admin Diagnostic Test (Pha) 1 strip ACHS 10/14/24 17:00 10/18/24 11:59 1 STRIP Insulin Human Regular ACHS SC 10/14/24 17:00 10/14/24 21:08 2 UNITS Dextrose 50 ml UD PRN IV 10/14/24 13:15 Acetaminophen/ Hydrocodone Bitart 1 tab Q4HP PRN PO 10/14/24 13:15 10/15/24 10:17 1 TAB Ondansetron HCl 4 mg Q4HP PRN IV 10/14/24 13:15 Acetaminophen 650 mg Q6HP PRN PO 10/14/24 13:15 10/15/24 20:48 650 MG Morphine Sulfate 2 mg Q4HPRN PRN IV 10/14/24 14:30 Nitroglycerin 0.4 mg Q5MINP PRN SL 10/14/24 13:15 Morphine Sulfate 2 mg Q30M PRN IV 10/14/24 14:30 Gabapentin 300 mg TID PO 10/14/24 14:32 10/18/24 14:09 300 MG Losartan Potassium 50 mg DAILY PO 10/15/24 10:00 10/18/24 10:22 50 MG Sucralfate 1 gm BID PO 10/14/24 22:00 10/18/24 10:21 1 GM Atorvastatin Calcium 40 mg HS PO 10/14/24 22:00 10/16/24 20:29 40 MG Ferrous Sulfate 325 mg DAILY PO 10/15/24 10:00 10/18/24 10:22 325 MG Iron Sucrose 110 ml @ 110 mls/hr DAILY@1200 IV 10/15/24 12:00 10/19/24 12:59 10/18/24 14:10 110 MLS/HR Saccharomyces Boulardii 250 mg DAILY PO 10/15/24 10:00 10/18/24 10:24 250 MG Pantoprazole Sodium 40 mg DAILY IV 10/15/24 10:00 10/18/24 10:22 40 MG Magnesium Oxide 400 mg DAILY PO 10/16/24 10:00 10/18/24 10:21 400 MG Morphine Sulfate 1 mg Q30M PRN IV 10/17/24 13:45 10/17/24 15:46 UNV Morphine Sulfate 1 mg Q30M PRN IV 10/17/24 14:00 objective General Appearance: alert, no distress HEENT: EOMI, PERRLA, normal external inspect of ears, no icterus, no nasal drainage Neck: no carotid bruit, no jugular venous distention (JVD), no lymphadenopathy Chest: normal thorax Respiratory: clear to auscultation, normal air movement Cardiovascular: regular rate and rhythm, no diastolic murmur, no jugular venous distention (JVD), no rub, no systolic murmur Abdominal: soft, no hepatomegaly, no mass, no splenomegaly, no tenderness Genitourinary: grossly normal external Musculoskeletal: no joint tenderness, no swelling Extremities: normal pulses, no calf tenderness, no clubbing, no cyanosis, no edema Skin: no bruising, no jaundice, no rash Neurological: alert, No focal deficit laboratory and microbiology Laboratory Tests 10/18/24 05:36 Test 10/18/24 05:36 Range/Units Serum Glucose 85 74-106 mg/dL Problem List 1. Intractable diarrhea with dark loose stools GI consult, PPI, transfuse for hbg below 7 2. acute on chronic anemia IV iron 3. hx of PE take eliquis at home monitor 4. HLD monitor 5. GI bleed hold anticoagulation, PPI, GI consult Assessment/Plan Subjective: Patient is awake and alert. Objective: Patient is [place]-speaking. Patient was admitted for GI bleed status post colonoscopy and EGD. Patient was found to have a large hiatal hernia, gastritis, and internal hemorrhoids with mild sigmoiditis. Plan: Continue Protonix twice daily and Carafate. Start anticoagulation per cardiology. Possible DC plan for tomorrow. Plan discussed with: Patient, Other MARK LANDON NP Oct 18, 2024 16:02
[2024-10-19] VITALS (7 sets, daily range): BP systolic 117–146; BP diastolic 33–62; PULSE 59–81; RESP 16–19; TEMP 98–100.2; O2SAT 93–97
--- NOTE | 2024-10-19 06:43 | DVHPN2 ---
Progress Note - Dictate Date Seen: Oct 19, 2024 Medical Necessity Reason Pt with a Central, PICC or Fol: No vital signs Vital Sign Date Time Temp Pulse Resp B/P (MAP) Pulse Ox O2 Delivery O2 Flow Rate FiO2 10/19/24 05:00 98.7 80 19 117/33 (61) 93 98.7 10/18/24 20:00 Room Air* 0 21 Total Intake and Output 10/18/24 10/18/24 10/19/24 15:00 23:00 07:00 Intake Total 535 ml 700 ml Output Total 450 ml Balance 535 ml 250 ml medications Current Medications Medications Dose Ordered Sig/Ulysses Route Start Time Stop Time Status Last Admin Dose Admin Diagnostic Test (Pha) 1 strip ACHS 10/14/24 17:00 10/18/24 21:59 1 STRIP Insulin Human Regular ACHS SC 10/14/24 17:00 10/18/24 21:59 2 UNITS Dextrose 50 ml UD PRN IV 10/14/24 13:15 Acetaminophen/ Hydrocodone Bitart 1 tab Q4HP PRN PO 10/14/24 13:15 10/15/24 10:17 1 TAB Ondansetron HCl 4 mg Q4HP PRN IV 10/14/24 13:15 Acetaminophen 650 mg Q6HP PRN PO 10/14/24 13:15 10/15/24 20:48 650 MG Morphine Sulfate 2 mg Q4HPRN PRN IV 10/14/24 14:30 Nitroglycerin 0.4 mg Q5MINP PRN SL 10/14/24 13:15 Morphine Sulfate 2 mg Q30M PRN IV 10/14/24 14:30 Gabapentin 300 mg TID PO 10/14/24 14:32 10/19/24 06:15 300 MG Losartan Potassium 50 mg DAILY PO 10/15/24 10:00 10/18/24 10:22 50 MG Sucralfate 1 gm BID PO 10/14/24 22:00 10/18/24 21:21 1 GM Atorvastatin Calcium 40 mg HS PO 10/14/24 22:00 10/18/24 21:20 40 MG Ferrous Sulfate 325 mg DAILY PO 10/15/24 10:00 10/18/24 10:22 325 MG Iron Sucrose 110 ml @ 110 mls/hr DAILY@1200 IV 10/15/24 12:00 10/19/24 12:59 10/18/24 14:10 110 MLS/HR Saccharomyces Boulardii 250 mg DAILY PO 10/15/24 10:00 10/18/24 10:24 250 MG Pantoprazole Sodium 40 mg DAILY IV 10/15/24 10:00 10/18/24 10:22 40 MG Magnesium Oxide 400 mg DAILY PO 10/16/24 10:00 10/18/24 10:21 400 MG Morphine Sulfate 1 mg Q30M PRN IV 10/17/24 13:45 10/17/24 15:46 UNV Morphine Sulfate 1 mg Q30M PRN IV 10/17/24 14:00 laboratory and microbiology Laboratory Tests 10/18/24 05:36 Test 10/18/24 05:36 Range/Units Serum Glucose 85 74-106 mg/dL Assessment/Plan Patient is a 79-year-old female who presented with abdominal pain/tarry stool/diarrhea for few days. Cardiology was involved for cardiac aspects of care. Patient is known to our practice from outside and before. She recently completed antibiotic therapy for UTI. Not in acute distress. No JVD. Mucosa is pink and wet. No carotid bruit. Not using accessory muscles of breathing. Lungs are clear to auscultation. Cardiac: Regular, no thrill/gallop. Abdomen is soft. Bowel sound is positive. There is no gross mass/hepatomegaly. Extremities do not reveal edema. Dorsalis pedis is 2+ bilateral Past medical history includes prediabetes, hypertension, old history of pulmonary emboli (on [facility] as outpatient), DJD, urinary incontinence, obesity, hiatal hernia, history of gastric ulcer, anemia, arthritis, DJD, old history of appendectomy/hysterectomy. Uses walker for ambulation. Echocardiogram of August 02, 2024 (performed in the office) revealed preserved left ventricular systolic function Nuclear stress test of July 2024 revealed fixed defect and the patient decided to proceed with medical management for it. Hemoglobin: 7.5 - 7.3 - 7.3 - 7.6 - 7.5 Creatinine: 0.88 - 0.85 - 0.84 - 0.79 - 0.85 Potassium: 3.4 - 3.8 - 4.0 - 3.3 - 3.4 Magnesium: 1.9 - 1.9 CT of the abdomen and pelvis reported: IMPRESSION: No acute intraabdominal abnormality. Stomach containing hiatal hernia contains dense material likely food debris. Moderate colonic diverticulosis. Chest xry revealed: IMPRESSION: 1. No evidence of acute disease. Moderate hiatal hernia Tele revealed sinus rhythm Patient is a 79-year-old female who presented with abdominal pain/diarrhea. There has been tarry stool. Patient is found to have diverticulosis. GI has seen the patient and is planning for colonoscopy/EGD. Cardiology was involved for cardiac risk stratification. Intractable diarrhea Tarry stool GI bleeding? Diabetes mellitus Hypertension Old history of pulmonary emboli, on chronic/long-term anticoagulation (Eliquis as outpatient) Anemia Obesity Diverticulosis Cardiac suggestion for management: Manage on telemetry Follow-up electrolytes and kidney function tests and correct abnormalities Keep potassium above 4 and magnesium above 2 Cardiac-domnigo, the patient is moderate risk patient for low risk EGD/colonoscopy. Cardiac-domingo, you can proceed with the procedures under appropriate intra and postoperative hemodynamic monitoring. Avoid hypotension. Suggestion is to hold off Eliquis for at least 2 days prior to the procedures Restart long-term full anticoagulation, after clinical stability and ruling out acute bleeding. Get GI permission. Further evaluation and management depends on the above and clinical course A total of 55 minutes was spent reviewing the patient record, examining the patient, making a diagnostic and therapeutic plan, discussing this plan with medical personnel, following up on diagnostic studies and following the patient for clinical stability excluding any and all procedures. At least 50% of this time was spent in direct, [id number] contact. Thank you for allowing me to participate in this patient's care. Further recommendations will depend on patient's clinical course. Please do not hesitate to contact me if you have any questions or concerns. This medical document was created using electronic medical record system with [employer] computerized dictation system. Although this document has been carefully reviewed, there may still be some phonetic and typographical errors. These areas are purely typographical due to the imperfection of the software programs, and do not reflect any compromise in the patient's medical care Plan discussed with: Other (nurse) PHILIPP RODRIGUEZ MD Oct 19, 2024 06:43
[2024-10-19 07:38] LABS: Eosinophils # (auto) 0.3 10 ^3/uL (0-0.8); Hemoglobin 7.6 g/dL (12.2-16.2); Monocytes # (auto) 0.4 10 ^3/uL (0-1.3); Neutrophils # (auto) 3.1 10 ^3/uL (1.6-8.6); White Blood Cell 5.5 10^3/uL (4.4-10.8)
[2024-10-19 07:39] LABS: Potassium 3.5 mmol/L (3.5-5.1)
[2024-10-19 07:40] LABS: Anion Gap 11 (5-15); Carbon Dioxide 25 mmol/L (20-31)
[2024-10-19 07:42] LABS: Basophils # (auto) 0.1 10 ^3/uL (0-0.2); Eosinophils % (auto) 5.2 % (0.0-7.0); Hematocrit 24.6 % (36.0-46.0); Lymphocytes # (auto) 1.7 10 ^3/uL (0.4-5.4); Lymphocytes % (auto) 30.6 % (10.0-50.0); Mean Corpuscular Hemoglobin 24.6 pg (28.0-32.0); Mean Corpuscular Hgb Conc. 30.9 g/dL (32.0-36.0); Mean Corpuscular Volume 79.8 fL (80.0-100.0); Neutrophils % (auto) 55.2 % (37.0-80.0); Nucleated Red Blood Cells % 0.4 %; Platelet Count (auto) 262 10^3/uL (140-450); Red Blood Cells 3.08 10^6/uL (4.0-5.20); Red Cell Distribution Width 17.5 % (11.8-14.3)
[2024-10-19 07:43] LABS: Chloride 111 mmol/L (98-107); Sodium 147 mmol/L (136-145)
[2024-10-19 07:46] LABS: BUN/Creatinine Ratio 7.7 (10.0-20.0); Glucose 90 mg/dL (74-106)
[2024-10-19 07:47] LABS: Blood Urea Nitrogen 6 mg/dL (9-23)
[2024-10-19 08:44] LABS: % Iron Saturation 64.3 % (15-50)
--- NOTE | 2024-10-19 08:59 | DVHPN2 ---
Progress Note - Dictate Date Seen: Oct 19, 2024 Medical Necessity Reason Pt with a Central, PICC or Fol: No vital signs Vital Sign Date Time Temp Pulse Resp B/P (MAP) Pulse Ox O2 Delivery O2 Flow Rate FiO2 10/19/24 08:00 61 17 95 Room Air* 0 21 10/19/24 05:00 98.7 117/33 (61) 98.7 Total Intake and Output 10/18/24 10/18/24 10/19/24 14:59 22:59 06:59 Intake Total 535 ml 700 ml Output Total 450 ml Balance 535 ml 250 ml medications Current Medications Medications Dose Ordered Sig/Ulysses Route Start Time Stop Time Status Last Admin Dose Admin Diagnostic Test (Pha) 1 strip ACHS 10/14/24 17:00 10/19/24 06:52 1 STRIP Insulin Human Regular ACHS SC 10/14/24 17:00 10/18/24 21:59 2 UNITS Dextrose 50 ml UD PRN IV 10/14/24 13:15 Acetaminophen/ Hydrocodone Bitart 1 tab Q4HP PRN PO 10/14/24 13:15 10/15/24 10:17 1 TAB Ondansetron HCl 4 mg Q4HP PRN IV 10/14/24 13:15 Acetaminophen 650 mg Q6HP PRN PO 10/14/24 13:15 10/15/24 20:48 650 MG Morphine Sulfate 2 mg Q4HPRN PRN IV 10/14/24 14:30 Nitroglycerin 0.4 mg Q5MINP PRN SL 10/14/24 13:15 Morphine Sulfate 2 mg Q30M PRN IV 10/14/24 14:30 Gabapentin 300 mg TID PO 10/14/24 14:32 10/19/24 06:15 300 MG Losartan Potassium 50 mg DAILY PO 10/15/24 10:00 10/18/24 10:22 50 MG Sucralfate 1 gm BID PO 10/14/24 22:00 10/18/24 21:21 1 GM Atorvastatin Calcium 40 mg HS PO 10/14/24 22:00 10/18/24 21:20 40 MG Ferrous Sulfate 325 mg DAILY PO 10/15/24 10:00 10/18/24 10:22 325 MG Saccharomyces Boulardii 250 mg DAILY PO 10/15/24 10:00 10/18/24 10:24 250 MG Pantoprazole Sodium 40 mg DAILY IV 10/15/24 10:00 10/18/24 10:22 40 MG Magnesium Oxide 400 mg DAILY PO 10/16/24 10:00 10/18/24 10:21 400 MG Morphine Sulfate 1 mg Q30M PRN IV 10/17/24 13:45 10/17/24 15:46 UNV Morphine Sulfate 1 mg Q30M PRN IV 10/17/24 14:00 objective General Appearance: alert, no distress HEENT: EOMI, PERRLA, normal external inspect of ears, no icterus, no nasal drainage Neck: no carotid bruit, no jugular venous distention (JVD), no lymphadenopathy Chest: normal thorax Respiratory: clear to auscultation, normal air movement Cardiovascular: regular rate and rhythm, no diastolic murmur, no jugular venous distention (JVD), no rub, no systolic murmur Abdominal: soft, no hepatomegaly, no mass, no splenomegaly, no tenderness Genitourinary: grossly normal external Musculoskeletal: no joint tenderness, no swelling Extremities: normal pulses, no calf tenderness, no clubbing, no cyanosis, no edema Skin: no bruising, no jaundice, no rash Neurological: alert, No focal deficit laboratory and microbiology Laboratory Tests 10/19/24 06:36 Test 10/19/24 06:36 Range/Units Serum Glucose 90 74-106 mg/dL Problem List 1. Intractable diarrhea with dark loose stools GI consult, PPI, transfuse for hbg below 7 2. acute on chronic anemia IV iron 3. hx of PE take eliquis at home monitor 4. HLD monitor 5. GI bleed hold anticoagulation, PPI, GI consult Assessment/Plan Subjective: Patient is awake and alert. Objective: Patient is Italian speaking. Patient was admitted for GI bleed. Patient had melena and she was on chronic anticoagulation for history of PE. Patient has status post EGD and colonoscopy by Doctor Solis. Patient was found to have a large hiatal hernia and gastritis. Patient was initiated on protonix twice a day as well as Carafate. Plan: Continue current treatment. Repeat labs ordered for tomorrow. Patient is DC planning possibly tomorrow if hemoglobin is stable. Plan discussed with: Patient, Other MARK LANDON NP Oct 19, 2024 08:59
[2024-10-19] MEDS ORDERED: APIXABAN 5 MG TAB PO SCH (10:00)
[2024-10-19] MEDS: PANTOPRAZOLE 40 MG TAB PO SCH (10:16)
--- NOTE | 2024-10-19 13:14 | DVH ---
RIGHT Upper Extremity Venous Duplex Clinical History: edema Comparison: None Findings: Duplex Doppler evaluation of the venous system of the RIGHT lower neck and upper extremity including color Doppler and spectral/pulsed waveform analysis was performed. The internal jugular vein demonstrates appropriate compressibility and waveform variability. The subclavian vein is patent on color Doppler evaluation without intraluminal thrombus and demonstra cely waveform variability. The visualized portion of the brachiocephalic vein is patent on color Doppler evaluation without intr aluminal thrombus and demonstrates waveform variability. The axillary vein demonstrates appropriate compressibility and waveform variability. The brachial veins demonstrate appropriate compressibility and patency on Doppler evaluation. The basilic vein demonstrates appropriate compressibility and patency on Doppler evaluation. Thrombosed right cephalic vein. Impression: Thrombosed right cephalic vein. If clinical concern/symptoms persist or worsen, short-interval follow-up study is suggested.
[2024-10-19] MEDS: APIXABAN 5 MG TAB PO SCH (13:42)
[2024-10-20 01:00] VITALS: BP 141/66; PULSE 82; RESP 18; TEMP 98.1; O2SAT 96
[2024-10-20 05:00] VITALS: BP 126/58; PULSE 65; RESP 18; TEMP 98.6; O2SAT 93
[2024-10-20 07:07] LABS: Basophils # (auto) 0.1 10 ^3/uL (0-0.2); Basophils % (auto) 0.9 % (0.0-2.0); Eosinophils # (auto) 0.3 10 ^3/uL (0-0.8); Eosinophils % (auto) 5.4 % (0.0-7.0); Hematocrit 26.5 % (36.0-46.0); Hemoglobin 8.3 g/dL (12.2-16.2); Lymphocytes # (auto) 1.5 10 ^3/uL (0.4-5.4); Lymphocytes % (auto) 25.3 % (10.0-50.0); Mean Corpuscular Hemoglobin 25.2 pg (28.0-32.0); Mean Corpuscular Hgb Conc. 31.2 g/dL (32.0-36.0); Mean Corpuscular Volume 80.6 fL (80.0-100.0); Monocytes # (auto) 0.5 10 ^3/uL (0-1.3); Monocytes % (auto) 9.2 % (0.0-12.0); Neutrophils # (auto) 3.5 10 ^3/uL (1.6-8.6); Neutrophils % (auto) 59.2 % (37.0-80.0); Nucleated Red Blood Cells % 0.1 %; Platelet Count (auto) 283 10^3/uL (140-450); Red Blood Cells 3.29 10^6/uL (4.0-5.20); Red Cell Distribution Width 17.8 % (11.8-14.3); White Blood Cell 5.9 10^3/uL (4.4-10.8)
--- NOTE | 2024-10-20 07:28 | DVHPN2 ---
Progress Note - Dictate Date Seen: Oct 20, 2024 Medical Necessity Reason Pt with a Central, PICC or Fol: No vital signs Vital Sign Date Time Temp Pulse Resp B/P (MAP) Pulse Ox O2 Delivery O2 Flow Rate FiO2 10/20/24 05:00 98.6 65 18 126/58 (80) 93 98.6 10/19/24 20:00 Room Air* 0 21 Total Intake and Output 10/19/24 10/19/24 10/20/24 15:00 23:00 07:00 Intake Total 850 ml 600 ml Output Total 4 ml 300 ml Balance 846 ml 300 ml medications Current Medications Medications Dose Ordered Sig/Ulysses Route Start Time Stop Time Status Last Admin Dose Admin Diagnostic Test (Pha) 1 strip ACHS 10/14/24 17:00 10/20/24 05:38 1 STRIP Insulin Human Regular ACHS SC 10/14/24 17:00 10/19/24 21:41 2 UNITS Dextrose 50 ml UD PRN IV 10/14/24 13:15 Acetaminophen/ Hydrocodone Bitart 1 tab Q4HP PRN PO 10/14/24 13:15 10/15/24 10:17 1 TAB Ondansetron HCl 4 mg Q4HP PRN IV 10/14/24 13:15 Acetaminophen 650 mg Q6HP PRN PO 10/14/24 13:15 10/15/24 20:48 650 MG Morphine Sulfate 2 mg Q4HPRN PRN IV 10/14/24 14:30 Nitroglycerin 0.4 mg Q5MINP PRN SL 10/14/24 13:15 Morphine Sulfate 2 mg Q30M PRN IV 10/14/24 14:30 Hold Gabapentin 300 mg TID PO 10/14/24 14:32 10/20/24 05:25 300 MG Losartan Potassium 50 mg DAILY PO 10/15/24 10:00 10/19/24 10:13 50 MG Sucralfate 1 gm BID PO 10/14/24 22:00 10/19/24 21:30 1 GM Atorvastatin Calcium 40 mg HS PO 10/14/24 22:00 10/19/24 21:30 40 MG Ferrous Sulfate 325 mg DAILY PO 10/15/24 10:00 10/19/24 10:13 325 MG Saccharomyces Boulardii 250 mg DAILY PO 10/15/24 10:00 10/19/24 10:14 250 MG Magnesium Oxide 400 mg DAILY PO 10/16/24 10:00 10/19/24 10:13 400 MG Morphine Sulfate 1 mg Q30M PRN IV 10/17/24 13:45 10/17/24 15:46 UNV Morphine Sulfate 1 mg Q30M PRN IV 10/17/24 14:00 Pantoprazole Sodium 40 mg BID@0600,1700 PO 10/19/24 09:00 10/20/24 05:26 40 MG Apixaban 5 mg BID PO 10/19/24 12:00 10/19/24 21:30 5 MG laboratory and microbiology Laboratory Tests 10/20/24 04:10 10/19/24 06:36 Test 10/19/24 06:36 Range/Units Serum Glucose 90 74-106 mg/dL Assessment/Plan Patient is a 79-year-old female who presented with abdominal pain/tarry stool/diarrhea for few days. Cardiology was involved for cardiac aspects of care. Patient is known to our practice from outside and before. She recently completed antibiotic therapy for UTI. Not in acute distress. No JVD. Mucosa is pink and wet. No carotid bruit. Not using accessory muscles of breathing. Lungs are clear to auscultation. Cardiac: Regular, no thrill/gallop. Abdomen is soft. Bowel sound is positive. There is no gross mass/hepatomegaly. Extremities do not reveal edema. Dorsalis pedis is 2+ bilateral Past medical history includes prediabetes, hypertension, old history of pulmonary emboli (on [facility] as outpatient), DJD, urinary incontinence, obesity, hiatal hernia, history of gastric ulcer, anemia, arthritis, DJD, old history of appendectomy/hysterectomy. Uses walker for ambulation. Echocardiogram of August 02, 2024 (performed in the office) revealed preserved left ventricular systolic function Nuclear stress test of July 2024 revealed fixed defect and the patient decided to proceed with medical management for it. Hemoglobin: 7.5 - 7.3 - 7.3 - 7.6 - 7.5 - 7.6 - 8.3 Creatinine: 0.88 - 0.85 - 0.84 - 0.79 - 0.85 - 0.78 Potassium: 3.4 - 3.8 - 4.0 - 3.3 - 3.4 - 3.5 Magnesium: 1.9 - 1.9 CT of the abdomen and pelvis reported: IMPRESSION: No acute intraabdominal abnormality. Stomach containing hiatal hernia contains dense material likely food debris. Moderate colonic diverticulosis. Chest xry revealed: IMPRESSION: 1. No evidence of acute disease. Moderate hiatal hernia Right upper ext venous duplex: Impression: Thrombosed right cephalic vein. Tele revealed sinus rhythm Patient is a 79-year-old female who presented with abdominal pain/diarrhea. There has been tarry stool. Patient is found to have diverticulosis. GI has seen the patient and is planning for colonoscopy/EGD. Cardiology was involved for cardiac risk stratification. Intractable diarrhea Tarry stool GI bleeding? Diabetes mellitus Hypertension Old history of pulmonary emboli, on chronic/long-term anticoagulation (Eliquis as outpatient) Anemia Obesity Diverticulosis Right Cephalic vein thrombosis Cardiac suggestion for management: Manage on telemetry Follow-up electrolytes and kidney function tests and correct abnormalities Keep potassium above 4 and magnesium above 2 Cardiac-domingo, the patient is moderate risk patient for low risk EGD/colonoscopy. s/p EGD/colonoscopy Suggestion was to restart long-term full anticoagulation, after clinical stability and ruling out acute bleeding and after GI permission. Restarted on Eliquis. Is found to have right Cephalic vein thrombosis (s/p iv fluid infiltration): suggestion is for warm compress. Cardiac domingo, stable. Further evaluation and management depends on the above and clinical course A total of 55 minutes was spent reviewing the patient record, examining the patient, making a diagnostic and therapeutic plan, discussing this plan with medical personnel, following up on diagnostic studies and following the patient for clinical stability excluding any and all procedures. At least 50% of this time was spent in direct, [id number] contact. Thank you for allowing me to participate in this patient's care. Further recommendations will depend on patient's clinical course. Please do not hesitate to contact me if you have any questions or concerns. This medical document was created using electronic medical record system with [employer] computerized dictation system. Although this document has been carefully reviewed, there may still be some phonetic and typographical errors. These areas are purely typographical due to the imperfection of the software programs, and do not reflect any compromise in the patient's medical care Dietary Evaluation Review Comments: Continue current POC Expected Outcomes/Goals: To meet >75% estimated needs Fu 3-5 days Plan discussed with: Patient, Other (nurse) PHILPIP RODRIGUEZ MD Oct 20, 2024 07:28
[2024-10-20 08:00] VITALS: PULSE 67
[2024-10-20 09:00] VITALS: BP 133/51; PULSE 71; RESP 18; TEMP 98.3; O2SAT 94
[2024-10-20] MEDS ORDERED: PANT40T PO (11:10)
[2024-10-20] MEDS ORDERED: SUCR1TAB PO (11:10)
--- NOTE | 2024-10-20 11:11 | DVHDS2 ---
Discharge Summary Date of Admission Oct 14, 2024 at 13:02 Date of Discharge: Oct 20, 2024 Labs/Diagnostic Data: Laboratory Results Test 10/20/24 05:28 10/20/24 04:10 10/19/24 06:36 10/18/24 05:36 POC Glucose 111 mg/dl (70-106) White Blood Count 5.9 10^3/uL (4.4-10.8) Red Blood Count 3.29 10^6/uL (4.0-5.20) Hemoglobin 8.3 g/dL (12.2-16.2) Hematocrit 26.5 % (36.0-46.0) Mean Corpuscular Volume 80.6 fL (80.0-100.0) Mean Corpuscular Hemoglobin 25.2 pg (28.0-32.0) Mean Corpuscular Hemoglobin Concent 31.2 g/dL (32.0-36.0) Red Cell Distribution Width 17.8 % (11.8-14.3) Platelet Count 283 10^3/uL (140-450) Mean Platelet Volume 7.6 fL (6.9-10.8) Neutrophils (%) (Auto) 59.2 % (37.0-80.0) Lymphocytes (%) (Auto) 25.3 % (10.0-50.0) Monocytes (%) (Auto) 9.2 % (0.0-12.0) Eosinophils (%) (Auto) 5.4 % (0.0-7.0) Basophils (%) (Auto) 0.9 % (0.0-2.0) Neutrophils # (Auto) 3.5 10 ^3/uL (1.6-8.6) Lymphocytes # (Auto) 1.5 10 ^3/uL (0.4-5.4) Monocytes # (Auto) 0.5 10 ^3/uL (0-1.3) Eosinophils # (Auto) 0.3 10 ^3/uL (0-0.8) Basophils # (Auto) 0.1 10 ^3/uL (0-0.2) Nucleated Red Blood Cells 0.1 % Sodium Level 147 mmol/L (136-145) Potassium Level 3.5 mmol/L (3.5-5.1) Chloride Level 111 mmol/L (98-107) Carbon Dioxide Level 25 mmol/L (20-31) Anion Gap 11 (5-15) Blood Urea Nitrogen 6 mg/dL (9-23) Creatinine 0.78 mg/dL (0.550-1.02) Glomerular Filtration Rate Calc 78 mL/min (>90) BUN/Creatinine Ratio 7.7 (10.0-20.0) Serum Glucose 90 mg/dL (74-106) Calcium Level 9.0 mg/dL (8.7-10.4) Iron Level 193 ug/dL (50-170) Total Iron Binding Capacity 300 ug/dL (250-425) Percent Iron Saturation 64.3 % (15-50) Magnesium Level 1.9 mg/dL (1.6-2.6) Test 10/16/24 10:15 10/16/24 05:23 10/15/24 21:00 10/14/24 15:25 Influenza Type A Antigen Negative (Negative) Influenza Type B Antigen Negative (Negative) SARS-CoV-2 Antigen (Rapid) Negative (NEGATIVE) Total Bilirubin 0.5 mg/dL (0.2-1.0) Aspartate Amino Transferase (AST) 15 U/L (13-40) Alanine Aminotransferase (ALT) 10 U/L (7-40) Alkaline Phosphatase 69 U/L (46-116) Total Protein 5.6 g/dL (5.7-8.2) Albumin 3.8 g/dL (3.2-4.8) Urine Color Colorless (Yellow) Urine Clarity Clear (Clear) Urine pH 5.0 (5.0-9.0) Urine Specific [place] 1.005 (1.001-1.035) Urine Protein Negative (Negative) Urine Ketones Negative (Negative) Urine Blood Negative /uL (Negative) Urine Nitrite Negative (Negative) Urine Bilirubin Negative (Negative) Urine Urobilinogen Normal mg/dL (Negative) Urine Leukocyte Esterase 1+ /uL (Negative) Urine RBC <1 /hpf (0 - 4) Urine Microscopic WBC 2 /HPF (0-5) Urine Squamous Epithelial Cells Few /hpf (<5) Urine Bacteria Few /hpf (None Seen) Urine Glucose Normal mg/dL (Normal) Test 10/14/24 11:45 Hemoglobin A1c 5.9 % A1C (<5.7) Other Laboratory Tests 10/20/24 04:10 10/19/24 06:36 Brief Hx & Hospital Course: 79-year-old female with past medical history of hypertension, diabetes, PE is complaining of diarrhea x3 days. Patient states that the stool has been loose tarry and dark. Patient was admitted on October 14, 2024 for melena and GI bleed. Patient seen by GI. Patient is status post colonoscopy and EGD. Patient was also seen by cardiology. Patient is on chronic anticoagulation for history of PE. Hemoglobin is now more stable. Patient was restarted on Eliquis yesterday. No active signs or symptoms of bleeding. Patient is cleared for discharge. Patient is aware she will need a repeat CBC in 1 week with her PCP. Continue PPI and Carafate. The patient received proper medical treatment and medications. Vital signs, Imaging and Laboratory Work was monitored daily. All consults recommendations were followed as provided. There were no complaints or new complaints upon discharge, all questions and concerns were answered. Patient was advised to return to the ER or call 911 if any headaches, dizziness, shortness of breath, chest pain, bleeding, fevers, or worsening of medical condition. Patient/Family was counseled about treatment plan, medications, possible side effects, patient verbalized understanding. All questions were answered to the best of my ability. The patient symptoms improved and they are okay to be DC. Condition at Discharge: Good Final Diagnosis/Problems List Melena s/p EGD and Colonoscopy- Hiatal hernia, gastritis, duodenitis continue protonix and carafate Intractable diarrhea with dark loose stools acute on chronic anemia hx of PE take eliquis at home HLD GI bleed Discharge Disposition: Home Discharge Instruct/Medications Diet: Cardiac 2g Na,low cholest Activity: No Restrictions, As Tolerated Follow Up/Referral: pcp 1 week Discharge Statement: "Patient was advised to return to the ER or call 911 if any headaches, dizziness, shortness of breath, chest pain, abdominal pain, bleeding, fevers, or worsening of medical condition. Patient was counseled about treatment plan, medications, possible side effects, patientverbalized understanding. All questions were answered to the best of my ability. This discharge took greater then 30 minutes in planning, reviewing documentation, counseling the patient, and discussing with other team members." ASSESSMENT ASSESSMENT Assessment Melena s/p EGD and Colonoscopy- Hiatal hernia, gastritis, duodenitis continue protonix and carafate MARK LANDON NP Oct 20, 2024 11:11
[2024-10-20 12:42] VITALS: BP 113/45; PULSE 73; RESP 18; TEMP 98.3; O2SAT 94
[2024-10-20 13:00] VITALS: BP 113/45; PULSE 73; RESP 18; TEMP 98.3; O2SAT 94
== END 2024-10-20 14:00 | disposition home or self-care (01) | DRG 378 ==
LOC: ER 11:16 → OVERFLOW 13:02 → TELE-WESTW 23:54
PROVIDERS: ADMIT Nurse Practitioner; ATTEND Nurse Practitioner
PROC: 0DBN8ZX Excision of Sigmoid Colon, Via Natural or Artificial Opening Endoscopic, Diagnostic (ICD-10-PCS; 2024-10-17)
PROC: 0DB78ZX Excision of Stomach, Pylorus, Via Natural or Artificial Opening Endoscopic, Diagnostic (ICD-10-PCS; principal; 2024-10-17 13:50)
DX: K29.71 Gastritis, unspecified, with bleeding (principal); I82.611 Acute embolism and thrombosis of superficial veins of right upper extremity; K57.31 Diverticulosis of large intestine without perforation or abscess with bleeding; K52.9 Noninfective gastroenteritis and colitis, unspecified; K64.8 Other hemorrhoids; K29.80 Duodenitis without bleeding; D50.9 Iron deficiency anemia, unspecified; E87.6 Hypokalemia; E66.9 Obesity, unspecified; E11.9 Type 2 diabetes mellitus without complications; K44.9 Diaphragmatic hernia without obstruction or gangrene; Z20.822 Contact with and (suspected) exposure to COVID-19; E78.5 Hyperlipidemia, unspecified; I10 Essential (primary) hypertension; Z88.0 Allergy status to penicillin; Z90.710 Acquired absence of both cervix and uterus; Z83.3 Family history of diabetes mellitus; Z86.711 Personal history of pulmonary embolism; Z82.0 Family history of epilepsy and other diseases of the nervous system; Z87.11 Personal history of peptic ulcer disease; Z79.01 Long term (current) use of anticoagulants; Z68.30 Body mass index [BMI] 30.0-30.9, adult
CPT/HCPCS: 36415; 71045; 74176; 80048; 80053; 81001; 82962; 83036; 83540; 83550; 83735; 85025; 86850; 86900; 86901; 87040; 87426; 87804; 93971; 96374; 96375; G0378; J1756; J1815; J2003; J2250; J2405; J2470; J2704